=== PATIENT | female | born 1935 | race Caucasian/White ===

== ENCOUNTER 2017-05-28 10:30 | Outpatient (RCR) | payer MEDICARE ==
[2017-02-24 17:11] VITALS: BMI 28.2
--- NOTE | 2017-03-04 11:14 | PT INITIAL EVALUATION ---
MEDICAL DIAGNOSIS: Left total knee arthroplasty, CVA TREATMENT DIAGNOSIS: same DATE OF ONSET: 01/07/17 SUBJECTIVE: Libia Tam presents to physical therapy s/p L TKA on January 07, 2017. Furthermore, she reports that she fell twice on February 23, 2017. She was taken to the ER by her and stayed in the hospital from Thursday to due to mild CVA affecting her L side UE and LE. From the fall and the hospital visit, she reports that she has increased ischial tuberosity pain (and rates it to be 6/10 if sitting on it incorrectly) along with R neck stiffness ( and rates it to be 4-5/10 and feels like it is getting better). Pt reports that her pain is only occasional, but when it does come it is typically in the posterior knee, medial aspect, or around the patella. Pt currently reports no pain. Pt lives with her in a multi-level home, but has been keeping to only one level. Pt has 2 stairs to enter her household and uses a walking stick with the railing for support. Pt has 5 children which frequently come check on her. 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 She has scap over the inferior portion of the incision where she reports a stitch was removed 1.5 weeks ago. No signs or symptoms of infection in her knee. Posture: Pt sits with knee L kicked out slightly without any WB through the L foot ROM: Knee AROM (ext-flexion): R 0-120, L 5-110, AAROM L 3-112 Strength: MMT B LE: hip: flexion: L 2/5, R 4+/5, ext: L 3/5, R 4+/5, abd: L 3/5 , R 4+/5, add: L 3/5, R 4/5, knee: flexion: L 3/5, R 4/5, ext: L 3/5, R 4/5, ankle: PF: L 3/5, R 4/5, DF: L 3/5, R 5/5 Special Tests: Knee lag with SLR: 15 degrees L Gait: She demonstrated the following gait mechanics or deviations with FWW: decreased velocity, increased base of support, increased R stance phase, decreased L stance phase, increased deviations from R to L, decreased pelvic rotation, increased double limb support, decreased swing phases of gait, and LOB demonstrated X 3 during gait tests. Balance: Unable to perform standing balance with decreased base of support on compliant surface and eyes closed. Only able to perform, increased base of support, firm surface, and eyes opened for 30 seconds prior to reaching for support. Other Objective Findings: FOTO Knee: ASSESSMENT: Pt shows signs and symptoms consistent s/p L TKA and CVA with decreased strength, ROM, gait mechanics, and balance as listed above. Physical therapy is indicated to return pt to prior level of function as well as correct the above listed deficits in status. Short Term Goals In 3 weeks pt will increase L Knee ROM to 0-120 for increased functional ability to perform ADL's. In 3 weeks pt will be able to ambulate up<>down one flight of stairs for ambulation between floors in household. In 3 weeks pt will be able to perform sit to/from standing transfers with no UE support to improve function and QOL. In 6 weeks pt will increase L LE strength to 4/5 or greater in all major muscle groups for improved functional ability to perform ADL's. In 6 weeks pt will increase FOTO Knee Score to >40/50 indicating improved function. In 6 weeks pt will be able to demonstrate good fall recovery techniques and be able to get on an off of the ground for ability to garden as well improve functional recovery from falls. In 8 weeks pt will be able to ambulate with walking stick and demonstrate normal gait mechanics to decreased fall risk and return to prior level of function. Patient's Goals Be able to get around independently, be able to on and off the ground for fall recovery and gardening. PLAN: Patient to be seen for Manual Therapy/STM/MET Strengthening/condition Ice/Heat Range of Motion Spinal Stabilization Ultrasound Work Hardening/Cond Stretching Iontophoresis Neuromuscular Re-ed Closed Chain Program Electrical Stim Posture/Body mechanics Gait Trg/Balance Trg Home Exercise Program Therapeutic Activities 2x/Week for 8 Weeks If you have any questions, comments, or concerns about this report or plan, please contact me at . Thank you, Bhaskar Roca, PT, DPT MTDD
--- NOTE | 2017-03-20 14:14 | PT PLAN OF CARE ---
Physician: Aquilino Dash MD Patient is being seen: 2x/week Therapist: Haley Machuca, PT Medical Diagnosis: Left total knee arthroplasty, CVA Treatment Diagnosis: same Date of Onset: 01/07/17 Date of Initial Evaluation: 03/03/17 Date patient was last seen: 03/20/17 Number of treatments: 6 Number of cancellations/No shows: 0 INTERVENTIONS: L TKA therapeutic exercise, HEP, Manual Therapy GOALS: In 3 weeks pt will increase L Knee ROM to 0-120 for increased functional ability to perform ADL's. In 3 weeks pt will be able to ambulate up<>down one flight of stairs for ambulation between floors in household. In 3 weeks pt will be able to perform sit to/from standing transfers with no UE support to improve function and QOL. In 6 weeks pt will increase L LE strength to 4/5 or greater in all major muscle groups for improved functional ability to perform ADL's. In 6 weeks pt will increase FOTO Knee Score to >40/50 indicating improved function. In 6 weeks pt will be able to demonstrate good fall recovery techniques and be able to get on an off of the ground for ability to garden as well improve functional recovery from falls. In 8 weeks pt will be able to ambulate with walking stick and demonstrate normal gait mechanics to decreased fall risk and return to prior level of function. PATIENT'S GOAL: Be able to get around independently, be able to on and off the ground for fall recovery and gardening. Patient Compliance: Good Prognosis: Good Reasons for discontinuing therapy: S: Libia requests DC from TKA PT as she has some women's health issues that she' d like to address with PT. Knee FOTO 52%. O: ROM: L knee A/PROM 5/3 - 115/120 degrees. Strength: hip flexors R 4+/5, L 4-/5, quads L 3+/5, R 4+/5, DF L 3+/5, R 5/5, PF L 3+/5, R 4/5. L SLR with 15 deg. lag. Gait: Walking stick, at slow cadance mild prolonged L stance, steady, normal line of progression, L midfoot strike, if focused heel strike. Palpation: Painful about the patella and incision. A/P: Libia Tam has improved ROM, gait and strength but could benefit from continued PT for her L knee. I'll DC PT for now, so she can work on women's health. After that PT, if she needs further knee PT, I'll call your office. Thank you. MISTY
--- NOTE | 2017-03-24 14:34 | PT INITIAL EVALUATION ---
MEDICAL DIAGNOSIS: R32 urinary incontinence TREATMENT DIAGNOSIS: Same, R15 fecal incontinence DATE OF ONSET: 03/19/17 SUBJECTIVE: iLbia Tam presents to women's health PT for a sudden onset of fecal incontinence on 03/19/17 and again the next day. She's had urinary stress incontinence for years after having a vaginal of her fourth child , 9 lb. 2 oz., then one more child. She stopped her L TKA PT here so she could do women's health. She relates stress incontinence is minimal, but she wears a heavy pad with minimal soling, changing it twice in 24 hours. She denies intestinal illness last week. Urinary incontinence Distress questionnaire 0% impairment, fecal incontinence Quality of Life Instrument 25% impairment. Libia denies urine and fecal leakage with Valsalva, denies urge incontinence. Pain location is L knee and described as stiff and ache. Pain scale is 5 on a ten point pain scale. Pain is worse with car transfers, sit<>stand transfers, first thing in the morning and better with rest. 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 OBJECTIVE: Posture: Flattened lumbar curve, retracted pelvis. ROM: L knee AROM 10-107 degrees. Strength: Levator Ani R 1+/5, L 1/5, 7 seconds endurance. 10 seconds quick contractions = 3 reps. L hip flexor 4-/5. Core strength 2/5. Palpation: External genitalia without scarring. Sensation: S2-4 light touch intact. Special Tests: Grade II POP, minimal pelvic floor descent with Valsalva. Rectum doesn't descent with Valsalva. Mobility: Difficulty with bed mobility, sidelie to sit due to LE's/trunk weakness. Gait: Walking stick, knee flexed 25 degrees, prolonged R LE. Other Objective Findings: Libia had difficulty with lumbar and pelvic region movement in a supine supported position. ASSESSMENT: Libia Tam presents with weak pelvic floor and core affecting fecal incontinence and distress. She is started on simple lumbar ROM exercise to facilitate pelvic floor muscle activation. Short Term Goals 4 weeks: Libia reports no fecal incontinence for 3-4 weeks, pelvic floor strength 4-/5, Fecal Incontinence QOL Instrument 19% or less. Patient's Goals No fecal incontinence. PLAN: Patient to be seen for Manual Therapy Strengthening/condition Range of Motion Spinal Stabilization Electrical Stim Home Exercise Program Pelvic Floor 2x/Week for 4 Weeks Thank you for this referral. If you have any questions, comments, or concerns about this report or plan, please contact me at . [facility]
--- NOTE | 2017-04-03 12:59 | PT PLAN OF CARE ---
Physician: Aarti Squires, STEPHANIE, FRONT OFFICE DIRECTOR- Patient is being seen: 2-3x/Week Therapist: Lucía Carter, PT, DPT, CLT Medical Diagnosis: R32 urinary incontinence Treatment Diagnosis: Same, R15 fecal incontinence Date of Onset: 03/19/17 Date of Initial Evaluation: 03/24/17 Date patient was last seen: 04/03/17 Number of treatments: 3 Number of cancellations/No shows: 0 INTERVENTIONS: Manual Therapy/STM/MET Strengthening/condition Range of Motion Spinal Stabilization Electrical Stim Home Exercise Program Pelvic Floor GOALS: 4 weeks: Libia reports no fecal incontinence for 3-4 weeks, pelvic floor strength 4-/5, Fecal Incontinence QOL Instrument 19% or less. MET for 2 weeks. PATIENT'S GOAL: No fecal incontinence. Status of Patient's Goals: MET Patient Compliance: Good Prognosis: Excellent Reasons for continuing therapy: Libia is to discharge from physical therapy treatment of incontinence at this time having completed all short term physical therapy goals. Pt is to continue to progress with pelvic floor strengthening HEP independently while initiating further PT for her L Knee s/p TKA which she reports is her greatest impairment at this time. In addition it is recommended that patient pursue treatment by RESIDENCE LEASING AGENT for reported continual deficits in cognition and voice level following TIA and has been referred to do so. Posture: Flattened lumbar curve, retracted pelvis. ROM: L knee AROM 5-107 degrees. Strength: Pelvic floor strength as tested with activation of internal core girdle 4-/5 Palpation: External genitalia without scarring. Special Tests: Fecal Incontinence Quality of Life Questionnaire Score: 98/108= 9 % impairment Mobility: Difficulty with bed mobility, sideline to sit due to LE's/trunk weakness. If you have any questions or concerns, please feel free to contact me at [phone]. Thank you, Lucía Carter, PT, DPT, CLT [facility]
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
--- NOTE | 2017-05-05 16:20 | PT PLAN OF CARE ---
Physician: Lay Horner MD Patient is being seen: 2x/Week Therapist: Lucía Carter, PT, DPT, CLT Medical Diagnosis: Ischemic Stroke Treatment Diagnosis: Generalized weakness, Ischemic Stroke, L TKA, Urinary Incontinence Date of Onset: 03/19/17 Date of Initial Evaluation: 03/24/17 Date patient was last seen: 05/05/17 Number of treatments: 10 Number of cancellations/No shows: 0 INTERVENTIONS: Manual Therapy/STM/MET Strengthening/condition Range of Motion Spinal Stabilization Electrical Stim Home Exercise Program Pelvic Floor GOALS: In 3 weeks pt will improve ROM of the L knee to equal to that of the R knee for improved functional mobility and performance of ADL's. MET In 6 weeks pt will improve LE strength B to > 4/5 in all major muscle groups for improved functional mobility and performance of ADL's. In 6 weeks pt will be able to ambulate 3 laps around the track without use of AD for improved functional ambulation. In 6 weeks pt will have no episodes of urinary incontinence with ADL's for increased function. PATIENT'S GOAL: No fecal incontinence. Status of Patient's Goals: 05/28 Goals MET Patient Compliance: Good Prognosis: Excellent Reasons for continuing therapy: Pt shows maintenance in surgical knee ROM with equal ROM between LE. Pt to progress further in PT with strengthening focusing on LE strength loss secondary from prolonged hospitalization and weakness secondary to multiple CVA's. Gait remains unstable with pt use of SPC for stability, though progress is to be made. Pt shows occasional bouts of urinary incontinence following CVA's which are being treated with pelvic floor and deep core activation and neuromuscular reeducation with relative success. Bouts of fecal incontinence are no longer present. Posture: Forward trunk lean, flattened lumbar curvature ROM: Knee AROM: L 4-120 degrees, R 3-120 degrees Strength: Lower Abdominal and pelvic floor strength: 1/5 LE MMT: Hip: flexion: L 3+/5, R 4/5, ext: L 3+/5, R 4/5. Knee: flexion: B 4/5 , ext: L 3+/5, R 4/5. Ankle: PF: B 3+/5, DF B 5/5 Mobility: Pt able to perform SLR on L side with 2-3 degree lag. Gait: Unsteady gait with wide WILLIE and use of walking stick for stability, decreased foot clearance B with decreased stride length. If you have any questions or concerns, please feel free to contact me at . Thanks, Lucía Carter, PT, DPT, CLT MTDD
[~2017-05-28 10:30] MED LIST: ACET500T68 PO; ASPI-1471 PO; ASPI-757 PO; ASPI-764 PO; ATOR20TA65 PO; ATR80PT PO; CALC-545 PO; CALC-852 PO; CLOB15GE7 TP; CLOP75TA PO; CYCL10TA29 PO; DOCU-202 PO; EST625 PO; ESTR-33 PO; FERR27TA3 PO; HYDR-2966 PO; LEVO-85 PO; LEVO50TA80 PO; LEVO50TA86 PO; LEVO75TA73 PO; LOPE1LIQ49 PO; LOSA100T67 PO; MECL25TA9 PO; OCCUVITE PO; OLME40TA17 PO; OMEP-125 PO; OMEP-218 PO; PANT20TA27 PO; PANT40TA65 PO; PIRO-1 PO; RANI-324 PO; ROS10 PO; SIMV-49 PO; SULF-198 PO; VIT1CAPS4 PO; VITA-175 PO
[2017-06-03] MEDS ORDERED: DICL100G39 TOP (13:42)
[2017-06-03] MEDS ORDERED: RANI-324 PO (13:49)
[2017-06-03] MEDS ORDERED: ATOR20TA65 PO (13:49)
[2017-06-03] MEDS ORDERED: CLOP75TA PO (13:50)
== END 2017-06-01 ==
LOC: PT 10:30
PROVIDERS: ATTEND Orthopaedic Surgery Hand Surgery
DX: Z47.1 Aftercare following joint replacement surgery (principal); R29.6 Repeated falls; I63.9 Cerebral infarction, unspecified; R26.89 Other abnormalities of gait and mobility; R32 Unspecified urinary incontinence; R15.9 Full incontinence of feces; M25.562 Pain in left knee; Z86.73 Personal history of transient ischemic attack (TIA), and cerebral infarction without residual deficits; Z96.653 Presence of artificial knee joint, bilateral
CPT/HCPCS: 97162

== ENCOUNTER 2017-08-07 15:19 | Outpatient (RCR) | payer MEDICARE ==
[2017-02-24 17:11] VITALS: BMI 28.2
--- NOTE | 2017-06-05 10:20 | SLP Assessment ---
INITIAL SPEECH PATHOLOGY EVALUATION REPOR Patient Name: Libia Tam Date of Evaluation: 06-03-17 Patient : 33 Age:81 , Female Physician: Lay Horner MD Clinician: Erna Biggs M.S., CCC-SEWING MACHINE OPERATOR FLOORPERSON BACKGROUND The patient is a 81 year old R-hand female. She was referred to speech therapy services d/t cognitive-communications deficits following a CVA. This was her 2nd recent CVA with first occurring in February of 2017. Functional Communication The patient has demonstrated improvement with returning to prior IADLs she is managing finances together with her . In tx she has demonstrated success with simulated student financial services counselor when provided with min assist to identify simple math errors using a calculator. She is now managing medications independently . She reports her occasionally double checks her medications for her but that he has found no errors. She would like to return to driving but reports he is not comfortable with this. She recently drove her car to the repair shop with her following behind in another car and reports she encountered no problems driving. ST will administer the VARGAS Fusion Juncture Grinder OFF-ROAD Assessment Battery. The results of this assessment do not clear the patient to drive. The results of this assessment provide additional information regarding whether or not the patient may be ready to take an on-road driving assessment if her physician feels this is appropriate. Articulation and Voice Vocal quality has improved with reduced breathiness and hoarseness of voice. Pitch variaibility and timber during conversation are improved with overall improved emotive quality of voice. Volume continues to be reduced however pt can increase volume with cueing and she feels she has returned to PLOF with speech volume. RECOMMENDATIONS 1 .Speech therapy 2x/wk for 10 weeks to address updated POC PROGNOSIS: Very Good. Patient is motivated and responds well to therapy UPDATED POC SHORT-TERM GOALS 1. Pt return to managing 2 IADLs of her choice independently 2. The patient will perform executive function tasks (ie. error identification and strategy use) for successful completion of daily tasks related to personal goals for return to IADLs LONG-TERM GOALS Increase functional cognitive- communication for independence in the community and at home. Thank you for this referral. Please call [phone] Erna Biggs M.S., CCC-SEWING MACHINE OPERATOR FLOORPERSON LSVT [facility] Certified [facility] Dysphagia Therapy Care Certified Physician Signature Date MTDD
--- NOTE | 2017-06-16 13:46 | PT PLAN OF CARE ---
Physician: Aarti Squires, DNP, EXPENSE ANALYST- Patient is being seen: 2-3x/Week Therapist: Lucía Carter, PT, DPT, CLT Medical Diagnosis: R32 urinary incontinence Treatment Diagnosis: Same, R15 fecal incontinence, Generalized Weakness, Abnormality of Gait Date of Onset: 03/19/17 Date of Initial Evaluation: 03/24/17 Date patient was last seen: 06/16/17 Number of treatments: 22 Number of cancellations/No shows: 0 INTERVENTIONS: Manual Therapy/STM/MET Strengthening/condition Range of Motion Spinal Stabilization Electrical Stim Home Exercise Program Pelvic Floor GOALS: In 3 weeks pt will improve ROM of the L knee to equal to that of the R knee for improved functional mobility and performance of ADL's. MET In 6 weeks pt will improve LE strength B to > 4/5 in all major muscle groups for improved functional mobility and performance of ADL's. In 6 weeks pt will be able to ambulate 3 laps around the track without use of AD for improved functional ambulation. In 6 weeks pt will have no episodes of urinary incontinence with ADL's for increased function. PATIENT'S GOAL: No fecal incontinence improve Status of Patient's Goals: 1/4 Goals MET Patient Compliance: Good Prognosis: Excellent Reasons for continuing therapy: Libia shows progress in strength and stability with gait and functional movement. Lingering deficits remain in gluteus medius weakness associated with L knee valgus and L Trendelenburg gait pattern, as well as general quad weakness L>R. Libia shows improved gait mechanics with equal step length and decreased pelvic drop, and is also now able to ambulate up stairs with a reciprocal gait pattern. Further PT is indicated to continue progress with strength gains as well as improve functional mobility. ROM: Knee AROM: L 4-120 degrees, R 3-120 degrees Strength: Lower Abdominal and pelvic floor strength: 3/5 LE MMT: Hip: flexion: L 3+/5, R 4/5, ext: L 3+/5, R 4/5. Knee: flexion: B 4/5 , ext: L 3+/5, R 4/5. Ankle: PF: B 3+/5, DF B 5/5 Mobility: Pt able to perform SLR on L side with 2-3 degree lag. Gait: Small step length but equal bilaterally, L Trendelenburg gait pattern, occasional gait deviation laterally for balance, no use of AD If you have any questions or concerns, please feel free to contact me at . Thanks, Lucía Carter, PT, DPT, CLT MTDD
--- NOTE | 2017-07-08 14:41 | SLP DISCHARGE NOTE ---
SPEECH THERAPY DISCHARGE SUMMARY Discharge from : 07-07-17 Patient Name: Libia Tam Patient : 33 Age:81 , Female Physician: Lay Horner MD Clinician: Erna Biggs M.S., [facility]-GROUP EXERCISE INSTRUCTOR, BINH Preston The pt has been attending ST at [facility] 2/wk since 04/23/2017. She attended scheduled visits regularly and continues to see PT 2/wk. She reported success outside of the treatment room with returning to IADLs, including managing finances. She also reported success with her expressive language and saying that she rarely experiences word finding difficulty outside of treatment. POC The patient has met the following ST goals: Short Term 1. Pt return to managing 2 IADLs of her choice with min assist. 2. Pt will perform attention tasks to 90-95% independently 3. Pt will perform expressive language tasks for functional communication with 90-95% accuracy and increased overall rate independently. Usp 1. Increase functional cognitive communication for independence in the community and at home. 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 She has returned to managing her finances, reading and sewing. Driving was addressed during treatment. The VARGAS-OT, Off- Road Driving Assessment was completed on 06-11-17 with the following results:. Visual acuity meets the standards for non-commercial drivers (R:20/50, L:20/100 ) and visual huynh were WNL. Pt has since had an eye exam at [facility] and reports that the results are unchanged when compared to pre-CVA vision testing. The Mejia Balance Scale indicated that the pt was a low fall risk (44/56). Right- heel pivot test was completed in 9 seconds and indicated reduced heal pivot skill that could affect driving. No risk indicated for the simulated accelerator-brake test. Cognitive assessment OT Drive Home Maze Test: 33 seconds- WNL Road Law/Road Craft Test: 28/37 WNL Mini-Mental Status Exam: 30/30 No cognitive deficit indicated [employer] test: 25/35 Indicated possible attentional deficit. At this time, the patients is not comfortable with her returning to driving and the patient agrees to comply with his wishes regarding her abstaining from driving. The patient was retested with the [place] Naming Test (BNT) and yielded a raw score of 53/60 88%. Given approximately a 5 minute delay, the patient was able to recall additional object names, yielding a score of 56/60 93%. The patients score from her initial evaluation was 51/60 85%. The patient also completed subtests from the Cognitive Linguistic Quick Test ( CLQT) assessing attention, executive function, and visuospatial skills. Scores on these were WNL. Previous testing indicated mild deficits in these areas. The patient was educated on stroke signs and cognitive health prior to d/c and was advised to inform her physician if she notices any changes in her cognitive and communicative abilities. RECOMMENDATION DC from at this time. Thank you for referring this patient to [facility], Speech- Language Pathology. Please call [phone] to contact the GROUP EXERCISE INSTRUCTOR. Respectfully, Erna Biggs M.S., [facility]-GROUP EXERCISE INSTRUCTOR, Gely Lawrence, [facility] SYSTEMAlexis
--- NOTE | 2017-07-24 09:36 | PT PLAN OF CARE ---
Physician: Lay Horner MD Patient is being seen: 2-3x/Week Therapist: Lucía Carter, PT, DPT, CLT Medical Diagnosis: R32 urinary incontinence Treatment Diagnosis: Same, R15 fecal incontinence Date of Onset: 03/19/17 Date of Initial Evaluation: 03/24/17 Date patient was last seen: 07/23/17 Number of treatments: 33 Number of cancellations/No shows: 0 INTERVENTIONS: Manual Therapy/STM/MET Strengthening/condition Range of Motion Spinal Stabilization Electrical Stim Home Exercise Program Pelvic Floor GOALS: In 3 weeks pt will improve ROM of the L knee to equal to that of the R knee for improved functional mobility and performance of ADL's. MET In 6 weeks pt will improve LE strength B to > 4/5 in all major muscle groups for improved functional mobility and performance of ADL's. In 6 weeks pt will be able to ambulate 3 laps around the track without use of AD for improved functional ambulation. MET In 6 weeks pt will have no episodes of urinary incontinence with ADL's for increased function. MET PATIENT'S GOAL: No fecal incontinence improve Status of Patient's Goals: 3/4 Goals MET Patient Compliance: Good Prognosis: Excellent Reasons for continuing therapy: Jenn shows good maintenance of no episodes of incontinence with improved pelvic floor strength. She also shows good improvements in knee strength. Lingering deficits remain in hip functional strength with gait with Trendelenburg pattern persisting though reduced. ROM: Knee AROM: L 4-120 degrees, R 3-120 degrees Strength: Lower Abdominal and pelvic floor strength: 3/5 LE MMT: Hip: flexion: L 4/5, R 5/5, ext: L 4/5, R 4+/5, abd: L 4/5, R 4+/5. Knee: flexion: B 5/5, ext: L 4+/5, R 5/5. Ankle: PF: B 3+/5, DF B 5/5 Mobility: Pt able to perform SLR on L side with 2-3 degree lag. Gait: Small step length but equal bilaterally, L Trendelenburg gait pattern, occasional gait deviation laterally for balance, no use of AD If you have any questions or concerns, please feel free to contact me at . Thanks, Lucía Carter PT, DPT, CLT MTDD
[~2017-08-07 15:19] MED LIST changes: +DICL100G39 TOP
--- NOTE | 2017-08-07 17:36 | PT PLAN OF CARE ---
Physician: Aarti Squires, DNP, [employer]- Patient is being seen: 2-3x/week Therapist: Lucía Carter, PT, DPT, CLT Medical Diagnosis: R32 urinary incontinence Treatment Diagnosis: Same, R15 fecal incontinence Date of Onset: 03/19/17 Date of Initial Evaluation: 03/24/17 Date patient was last seen: 08/07/17 Number of treatments: 37 Number of cancellations/No shows: 1 IGOALS: In 3 weeks pt will improve ROM of the L knee to equal to that of the R knee for improved functional mobility and performance of ADL's. MET In 6 weeks pt will improve LE strength B to > 4/5 in all major muscle groups for improved functional mobility and performance of ADL's. MET In 6 weeks pt will be able to ambulate 3 laps around the track without use of AD for improved functional ambulation. MET In 6 weeks pt will have no episodes of urinary incontinence with ADL's for increased function. MET PATIENT'S GOAL: No fecal incontinence improve Status of Patient's Goals: 4/4 Goals MET Patient Compliance: Good Prognosis: Excellent Reasons for discharge from therapy: Libia is to discharge from physical therapy at this time secondary to completion of 4/4 functional goals and per pt preference. 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 Pt is to progress independently with strength gains at this time and seek further pt if deficits remain or if pt experiences any decrease in function. ROM: Knee AROM: L 4-120 degrees, R 3-120 degrees Strength: Lower Abdominal and pelvic floor strength: 4/5 LE MMT: Hip: flexion: L 4+/5, R 5/5, ext: L 4+/5, R 4+/5, abd: L 4+/5, R 4+/ 5. add: B 5/5 Knee: flexion: B 4+/5, ext: L 4+/5, R 5/5. Ankle: PF: B 4/5, DF B 5/5 Gait: Slight L Trendelenburg gait pattern remaining with occasional gait deviation laterally for balance, no use of AD If you have any questions or concerns, please feel free to contact me at [phone]. Thanks, Lucía Carter, PT, DPT, CLT MTDD
== END 2017-08-07 18:00 | disposition home or self-care (01) ==
LOC: PT 15:19
PROVIDERS: ATTEND Family Medicine
DX: Z47.1 Aftercare following joint replacement surgery (principal); R29.6 Repeated falls; I63.9 Cerebral infarction, unspecified; R26.89 Other abnormalities of gait and mobility; R32 Unspecified urinary incontinence; R15.9 Full incontinence of feces; M25.562 Pain in left knee; Z86.73 Personal history of transient ischemic attack (TIA), and cerebral infarction without residual deficits; Z96.653 Presence of artificial knee joint, bilateral

== ENCOUNTER 2017-10-21 16:57 | Emergency (ER) | payer MEDICARE ==
[2017-02-24 17:11] VITALS: Wt 72.6 kg
[~2017-10-21 16:57] MED LIST changes: -RANI-324 PO; +RANI-366 PO
--- NOTE | 2017-10-21 17:00 | ER Report ---
History and Physical Time Seen By MD: 16:58 (RIYA ACOSTA DO) HPI/ROS CHIEF COMPLAINT: Chest pain with inspiration, shortness of breath for 2 days, general malaise, headache for the past 1-2 hours HISTORY OF PRESENT ILLNESS: Patient is an 82-year-old female here with complaints of pleuritic mid sternal chest pain worse with inspiration for the past 2 days, frontal headache (no history of headaches) for the past 1-2 hours in the setting of prior history of strokes currently on Plavix and aspirin. Patient was also noted to be short of breath, with oxygen saturations of 89% and tachycardic. She denies prior history of smoking, home oxygen use, COPD, heart failure. She was placed on supplement oxygen upon arrival. Patient denies fevers, chills, blurred vision, dysphagia, odynophagia, nausea, vomiting, dysuria, hematuria, melena, hematochezia or recent falls. REVIEW OF SYSTEMS: Constitutional: No fever, no chills. Eyes: No discharge. ENT: No sore throat. Cardiovascular: + chest pain, no palpitations. Respiratory: No cough, + shortness of breath, + pleuritic CP worse on inspiration Gastrointestinal: No abdominal pain, no vomiting. Genitourinary: No hematuria. Musculoskeletal: No back pain. Skin: No rashes. Neurological: + headache. (RIYA ACOSTA DO) Allergies: Coded Allergies: NSAIDS (Non-Steroidal Anti-Inflamma (Verified Allergy, Unknown, 10/21/17) Penicillins (Verified Allergy, Unknown, 10/21/17) amoxicillin (Verified Allergy, Unknown, 10/21/17) clavulanic acid (Verified Allergy, Unknown, 10/21/17) Home Meds Active Scripts Methylprednisolone (METHYLPREDNISOLONE) 4 Mg Tab.ds.pk, 4 MG PO DIRECTED for 6 Days, #1 PACK 0 Refills Prov:DAFNE MITCHELL MD 10/21/17 Levothyroxine Sodium (LEVOTHYROXINE SODIUM) 50 Mcg Tablet, 1 TAB PO QDAY for 90 Days, #90 TAB 4 Refills Prov:KALEY GARCIA MD 10/12/17 Clopidogrel Bisulfate (CLOPIDOGREL) 75 Mg Tablet, 1 TAB PO QDAY for 90 Days, # 90 TAB 4 Refills Prov:KALEY GARCIA MD 06/03/17 Atorvastatin Calcium (ATORVASTATIN CALCIUM) 20 Mg Tablet, 1 TAB PO QDAY for 90 Days, #90 TAB 4 Refills Prov:KALEY GARCIA MD 06/03/17 Ranitidine Hcl (ZANTAC) 150 Mg Tablet, 1 TAB PO BID Y for HEARTBURN for 90 Days , #180 TAB 4 Refills Take 1 tab po daily for heartburn, may take twice daily if needed. Prov:KALEY GARCIA MD 06/03/17 Diclofenac Sodium 1% Gel (VOLTAREN 1% GEL) 100 Gm Gel..gram., 2 GM TOP QID for 30 Days, #1 TUBE 3 Refills Prov:KALEY GARCIA MD 06/03/17 Reported Medications Aspirin (ASPIR 81) 81 Mg Tablet.dr, 1 TAB PO QDAY, TAB 04/13/17 Acetaminophen (TYLENOL EXTRA STRENGTH) 500 Mg Tablet, 2 TAB PO Q8H Y for pain, TAB 11/03/16 Meclizine Hcl (MECLIZINE HCL) 25 Mg Tablet, 12.5 MG PO BID Y for DIZZINESS 11/03/16 Vit A/Vit C/Vit E/Zinc/Copper (ICAPS AREDS SOFTGEL) Unknown Strength Capsule, PO , CAPSULE 11/03/16 Hx Smoking: No Smoking Status: Never Smoker Exposure to Second Hand Smoke?: Yes (FATHER WAS A SMOKER- NONE FOR 50+ YEARS) Hx Substance Use Disorder: No Hx Alcohol Use: No (RIYA ACOSTA DO) Constitutional Vital Sign - Last 24 Hours 10/21/17 10/21/17 10/21/17 10/21/17 17:01 17:03 17:17 17:30 Temp 97.9 Pulse 116 97 97 Resp 18 22 B/P (MAP) 179/97 179/97 (124) 171/90 (117) Pulse Ox 93 97 O2 Delivery Room Air O2 Flow Rate 2.0 10/21/17 10/21/17 10/21/17 10/21/17 17:32 17:32 17:37 18:30 Pulse 93 95 97 Resp 16 13 B/P (MAP) 179/93 (121) Pulse Ox 96 O2 Delivery Nasal Cannula O2 Flow Rate 2.0 10/21/17 10/21/17 10/21/17 10/21/17 18:35 18:50 19:00 19:05 Pulse 109 110 109 Resp 21 23 10 B/P (MAP) 174/93 (120) Pulse Ox 95 ([facility]) Physical Exam General Appearance: The patient is alert, has no immediate need for airway protection and no signs of toxicity. + anxious, moderate distress due to discomfort/SOB Eyes: Pupils equal and round no pallor or injection. ENT, Mouth: Mucous membranes are moist. Respiratory: There are no retractions, lungs are clear to auscultation. Cardiovascular: + Tachycardia, Sinus Gastrointestinal: Abdomen is soft and non tender, no masses, bowel sounds normal. Neurological: No focal deficits Skin: Warm and dry, no rashes. Musculoskeletal: Neck is supple non tender. Extremities are nontender, nonswollen and have full range of motion. DIFFERENTIAL DIAGNOSIS: After history and physical exam differential diagnosis was considered for shortness of breath including but not limited to pulmonary infectious process, COPD, asthma, pulmonary embolus and congestive heart failure. (RIYA ACOSTA DO) Medical Decision Making Data Points Result Diagram: 10/21/17 1708 10/21/17 1708 Laboratory Hematology Test 10/21/17 17:08 Red Blood Count 4.74 M/uL (4.17-5.56) Mean Corpuscular Volume 90.8 fL (80.0-96.0) Mean Corpuscular Hemoglobin 31.4 pg (26.0-33.0) Mean Corpuscular Hemoglobin Concent 34.6 g/dL (32.0-36.0) Red Cell Distribution Width 13.1 % (11.5-14.5) Mean Platelet Volume 8.3 fL (7.2-11.1) Neutrophils (%) (Auto) 71.0 % (39.4-72.5) Lymphocytes (%) (Auto) 17.1 % (17.6-49.6) Monocytes (%) (Auto) 9.3 % (4.1-12.4) Eosinophils (%) (Auto) 2.1 % (0.4-6.7) Basophils (%) (Auto) 0.5 % (0.3-1.4) Nucleated RBC Relative Count (auto) 0.0 /100WBC Neutrophils # (Auto) 10.1 K/uL (2.0-7.4) Lymphocytes # (Auto) 2.4 K/uL (1.3-3.6) Monocytes # (Auto) 1.3 K/uL (0.3-1.0) Eosinophils # (Auto) 0.3 K/uL (0.0-0.5) Basophils # (Auto) 0.1 K/uL (0.0-0.1) Nucleated RBC Absolute Count (auto) 0.01 K/uL Prothrombin Time 14.9 seconds (12.0-14.4) Prothromb Time International Ratio 1.16 Activated Partial Thromboplast Time 33 seconds (23-35) D-Dimer Quantitative (PE/DVT) 0.67 ug/ml (0-0.50) Sodium Level 142 mmol/L (137-145) Potassium Level 3.5 mmol/L (3.5-5.0) Chloride Level 100 mmol/L (98-107) Carbon Dioxide Level 27 mmol/L (22-31) Blood Urea Nitrogen 17 mg/dl (7-18) Creatinine 0.80 mg/dl (0.52-1.04) Glomerular Filtration Rate Calc > 60.0 Random Glucose 104 mg/dl (75-110) Calcium Level 9.9 mg/dl (8.4-10.2) Total Bilirubin 0.7 mg/dl (0.2-1.3) Aspartate Amino Transf (AST/SGOT) 27 U/L (0-35) Alanine Aminotransferase (ALT/SGPT) 26 U/L (0-56) Alkaline Phosphatase 83 U/L (0-126) Troponin I < 0.012 ng/ml B-Type Natriuretic Peptide 51 pg/ml (0-100) Total Protein 8.5 gm/dl (6.3-8.2) Albumin 4.8 g/dl (3.5-5.0) Chemistry Test 10/21/17 17:08 White Blood Count 14.2 k/uL (4.5-11.0) Red Blood Count 4.74 M/uL (4.17-5.56) Hemoglobin 14.9 g/dL (12.0-16.0) Hematocrit 43.0 % (34.0-47.0) Mean Corpuscular Volume 90.8 fL (80.0-96.0) Mean Corpuscular Hemoglobin 31.4 pg (26.0-33.0) Mean Corpuscular Hemoglobin Concent 34.6 g/dL (32.0-36.0) Red Cell Distribution Width 13.1 % (11.5-14.5) Platelet Count 271 K/uL (150-450) Mean Platelet Volume 8.3 fL (7.2-11.1) Neutrophils (%) (Auto) 71.0 % (39.4-72.5) Lymphocytes (%) (Auto) 17.1 % (17.6-49.6) Monocytes (%) (Auto) 9.3 % (4.1-12.4) Eosinophils (%) (Auto) 2.1 % (0.4-6.7) Basophils (%) (Auto) 0.5 % (0.3-1.4) Nucleated RBC Relative Count (auto) 0.0 /100WBC Neutrophils # (Auto) 10.1 K/uL (2.0-7.4) Lymphocytes # (Auto) 2.4 K/uL (1.3-3.6) Monocytes # (Auto) 1.3 K/uL (0.3-1.0) Eosinophils # (Auto) 0.3 K/uL (0.0-0.5) Basophils # (Auto) 0.1 K/uL (0.0-0.1) Nucleated RBC Absolute Count (auto) 0.01 K/uL Prothrombin Time 14.9 seconds (12.0-14.4) Prothromb Time International Ratio 1.16 Activated Partial Thromboplast Time 33 seconds (23-35) D-Dimer Quantitative (PE/DVT) 0.67 ug/ml (0-0.50) Glomerular Filtration Rate Calc > 60.0 Calcium Level 9.9 mg/dl (8.4-10.2) Total Bilirubin 0.7 mg/dl (0.2-1.3) Aspartate Amino Transf (AST/SGOT) 27 U/L (0-35) Alanine Aminotransferase (ALT/SGPT) 26 U/L (0-56) Alkaline Phosphatase 83 U/L (0-126) Troponin I < 0.012 ng/ml B-Type Natriuretic Peptide 51 pg/ml (0-100) Total Protein 8.5 gm/dl (6.3-8.2) Albumin 4.8 g/dl (3.5-5.0) Coagulation Test 10/21/17 17:08 Prothrombin Time 14.9 seconds Prothromb Time International Ratio 1.16 Activated Partial Thromboplast Time 33 seconds D-Dimer Quantitative (PE/DVT) 0.67 ug/ml ([facility]) EKG/Imaging EKG Interpretation 12 lead EKG: Rate 102- Unchanged compared to Apr 08 2017 EKG Rhythm: Sinus Tachycardia Spreckels: LAD QRS: normal ST segments: normal Monitor Interpretation: Sinus Tachycardia (ACOSTA,RIYA S DO) Imaging CT angiogram chest with contrast Indication: Rule out a pulmonary embolus. Comparison: Examination chest March 2017 Technique: Axial CT images are obtained through the chest after administration of 75 mL Isovue 370 IV contrast. Reformatted coronal and sagittal images were reviewed as well as coronal MIP images. One of the following dose optimization techniques was utilized in the performance of this exam: Automated exposure control; adjustment of the mA and/or kV according to the patient's size; or use of an iterative reconstruction technique. Specific details can be referenced in the facility's radiology CT exam operational policy. FINDINGS: The heart appears mildly enlarged. No pericardial effusion. Although not optimally timed, there is no evidence of acute vascular abnormality associated with the visualized aorta or the proximal arch vessels. There is no CT angiographic evidence for a pulmonary embolus. Pulmonary parenchyma reveals minimal posterior dependent groundglass opacity with posterior bibasilar linear opacity consistent with subsegmental atelectasis and hypoventilatory change. No evidence of alveolar consolidation, effusion or pneumothorax. Small hiatal hernia. Evaluation of the soft tissues reveal symmetric appearing thyroid. Prominent nodes are noted in AP window, the largest of which measures 9 mm. Additional mildly prominent but subcentimeter nodes are noted in the superior mediastinum. IMPRESSION: 1. No evidence of pulmonary embolus. 2. Mild cardiomegaly 3. Mild posterior and bibasilar atelectasis 4. Borderline adenopathy AP window. Report Dictated By: Shane Angela MD at 10/21/2017 6:13 PM EXAMINATION: CT HEAD WITHOUT CONTRAST COMPARISON: 04/08/2017 HISTORY: headache PROCEDURE: Noncontrast CT from the vertex through the skull base. One of the following dose optimization techniques was utilized in the performance of this exam: Automated exposure control; adjustment of the mA and/or kV according to the patient's size; or use of an iterative reconstruction technique. Specific details can be referenced in the facility's radiology CT exam operational policy. FINDINGS: Brain volume: Mild global volume loss. Hemorrhage/extra-axial fluid: None. Mass effect/midline shift/edema: None. Ischemia: Moderately advanced chronic white matter change as before. No acute barrera-white differentiation loss. Ventricles and basal cisterns: Within normal limits. Posterior fossa: Negative. Vessels: Carotid atherosclerosis. Calvarium, skull base, and scalp: Negative. Visualized sinuses and orbits: Within normal limits. IMPRESSION: 1. No intracranial hemorrhage or mass effect. 2. Atrophy and chronic white matter disease. No CT findings of acute ischemia. Report Dictated By: Marco Rivas MD at 10/21/2017 6:22 PM ([facility],DAFNE Pederson MD) ED Course/Re-evaluation ED Course Patient is an 82-year-old female here with complaints of pleuritic mid sternal chest pain worse with inspiration for the past 2 days, frontal headache (no history of headaches) for the past 1-2 hours in the setting of prior history of strokes currently on Plavix and aspirin. Patient was also noted to be short of breath, with oxygen saturations of 89% and tachycardic (sinus rhythm). EKG confirmed sinus tachycardia without ischemic changes. Bedside US showed no tamponade physiology, septal bowing. Good lung sliding was noted b/l lung huynh. She denies prior history of smoking, home oxygen use, COPD, heart failure. She was placed on supplement oxygen upon arrival. Patient denies fevers , chills, blurred vision, dysphagia, odynophagia, nausea, vomiting, dysuria, hematuria, melena, hematochezia or recent falls. Due to clinical concern, CT PE was ordered and CT Head was ordered due to new onset of acute headache. Patient was also noted to be hypertensive- will continue to monitor. Duoneb was ordered to see if dyspnea will improve post neb treatment. Lungs CTA on examination, no JVD was noted or tracheal deviation. Patient was afebrile at time of initial evaluation. (RIYA ACOSTA DO) ED Course I reviewed this patient with Dr. Acosta at shift change. Her CTA of the chest is negative. Her CT of the head is negative. She is off of oxygen and saturations have remained in the mid 90s. She is mildly tachycardic. We discussed pleurisy and will start her on a Medrol Dosepak. She will continue to use Tylenol for pain. She will rest and increase her fluid intake. Decision to Disposition Date: October 21, 2017 Decision to Disposition Time: 18:53 (DAFNE MITCHELL MD) Depart Departure Latest Vital Signs Vital Signs Date Time Temp Pulse Resp B/P (MAP) Pulse Ox O2 Delivery O2 Flow Rate FiO2 10/21/17 19:05 109 10 10/21/17 19:00 174/93 (120) 10/21/17 18:50 95 10/21/17 17:32 Nasal Cannula 2.0 10/21/17 17:01 97.9 (DAFNE MITCHELL MD) Impression: Primary Impression: Pleurisy Condition: Improved Disposition: HOME OR SELF-CARE Referrals: KALEY GARCIA MD (PCP) New Scripts Methylprednisolone (METHYLPREDNISOLONE) 4 Mg Tab.ds.pk 4 MG PO DIRECTED for 6 Days, #1 PACK 0 Refills Prov: DAFNE MITCHELL MD 10/21/17 Patient Instructions: Pleurisy (ED) Additional Instructions: Start the Medrol Dosepak tomorrow. Rest and increase fluid intake over the next few days. Make a follow-up appointment with your primary care provider next week. RIYA ACOSTA DO October 21, 2017 17:00 DAFNE MITCHELL MD October 21, 2017 18:32
[2017-10-21 17:22] LABS: PLATELET COUNT, AUTOMATED 271 K/uL (150-450)
[2017-10-21] MEDS ORDERED: NS 0.9% 25 ML BAG 50 ML ONE (17:24)
[2017-10-21] MEDS ORDERED: IOPAMIDOL 76% 75 ML INFUS BTL 75 ML ONE (17:24)
--- NOTE | 2017-10-21 17:24 | EKG ---
FACILITY: [facility] PATIENT NAME: JIMBO LAWS : [id number] MR: [id number] V: [id number] EXAM DATE: ORDERING PHYSICIAN: RIYA MOE TECHNOLOGIST: LIA Cox Reason : CP Blood Pressure : / mmHG Vent. Rate : 102 BPM Atrial Rate : 102 BPM P-R Int : 188 ms QRS Dur : 084 ms QT Int : 366 ms P-R-T Axes : 050 -34 022 degrees QTc Int : 477 ms Sinus tachycardia Left axis deviation Poor r-wave progression Anterior infarct (cited on or before 21-OCT-2017) Abnormal ECG When compared with ECG of 08-APR-2017 17:00, Questionable change in initial forces of Lateral leads Non-specific change in ST segment in Lateral leads Confirmed by CLIVE BECERRA ([id number]) on 10/22/2017 6:42:39 AM Referred By: ABHI Confirmed By:CLIVE BECERRA
[2017-10-21] MEDS ORDERED: ALBUTEROL/IPRATROPIUM 3 ML NEB NEB ONE (17:30)
[2017-10-21 17:31] LABS: INR 1.16
--- NOTE | 2017-10-21 18:27 | RADIOLOGY IMAGING REPORT ---
FACILITY: [facility] PATIENT NAME: Libia Tam : 1935 MR: [id number] V: [id number] EXAM DATE: ORDERING PHYSICIAN: RIYA MOE TECHNOLOGIST: Location: [facility] [place] Patient: Libia Tam : 1935 Visit/Account:[id number] Date of Sevice: 10/21/2017 CT angiogram chest with contrast Indication: Rule out a pulmonary embolus. Comparison: Examination chest March 2017 Technique: Axial CT images are obtained through the chest after administration of 75 mL Isovue 370 IV contrast. Reformatted coronal and sagittal images were reviewed as well as coronal MIP images. One o f the following dose optimization techniques was utilized in the performance of this exam: Automated exposure control; adjustment of the mA and/or kV according to the patient's size; or use of an iterat silvano reconstruction technique. Specific details can be referenced in the facility's radiology CT exa m operational policy. FINDINGS: The heart appears mildly enlarged. No pericardial effusion. Although not optimally timed, there is no evidence of acute vascular abnormality associated with the visualized aorta or the proximal arch ves sels. There is no CT angiographic evidence for a pulmonary embolus. Pulmonary parenchyma reveals minimal posterior dependent groundglass opacity with posterior bibasilar linear opacity consistent with subsegmental atelectasis and hypoventilatory change. No evidence of a lveolar consolidation, effusion or pneumothorax. Small hiatal hernia. Evaluation of the soft tissues reveal symmetric appearing thyroid. Prominent nodes are noted in AP wi ndow, the largest of which measures 9 mm. Additional mildly prominent but subcentimeter nodes are not ed in the superior mediastinum. IMPRESSION: 1. No evidence of pulmonary embolus. 2. Mild cardiomegaly 3. Mild posterior and bibasilar atelectasis 4. Borderline adenopathy AP window. Report Dictated By: Shane Angela MD at 10/21/2017 6:13 PM Report E-Signed By: Shane Angela MD at 10/21/2017 6:22 PM WSN:[id number]
--- NOTE | 2017-10-21 18:28 | RADIOLOGY IMAGING REPORT ---
FACILITY: [facility] PATIENT NAME: Libia Tam : 1935 MR: [id number] V: [id number] EXAM DATE: ORDERING PHYSICIAN: RIYA MOE TECHNOLOGIST: Location: [facility] - [place] Patient: Libia Tam : 1935 Visit/Account:[id number] Date of Sevice: 10/21/2017 EXAMINATION: CT HEAD WITHOUT CONTRAST COMPARISON: 04/08/2017 HISTORY: headache PROCEDURE: Noncontrast CT from the vertex through the skull base. One of the following dose optimizat ion techniques was utilized in the performance of this exam: Automated exposure control; adjustment o f the mA and/or kV according to the patient's size; or use of an iterative reconstruction technique. Specific details can be referenced in the facility's radiology CT exam operational policy. FINDINGS: Brain volume: Mild global volume loss. Hemorrhage/extra-axial fluid: None. Mass effect/midline shift/edema: None. Ischemia: Moderately advanced chronic white matter change as before. No acute barrera-white differentiat ion loss. Ventricles and basal cisterns: Within normal limits. Posterior fossa: Negative. Vessels: Carotid atherosclerosis. Calvarium, skull base, and scalp: Negative. Visualized sinuses and orbits: Within normal limits. IMPRESSION: 1. No intracranial hemorrhage or mass effect. 2. Atrophy and chronic white matter disease. No CT findings of acute ischemia. Report Dictated By: Marco Rivas MD at 10/21/2017 6:22 PM Report E-Signed By: Marco Rivas MD at 10/21/2017 6:25 PM WSN:[id number]
[2017-10-21] MEDS ORDERED: METH4TAB66 PO (18:54)
[2017-10-21] MEDS ORDERED: methylPREDNIS 4 MG TAB PO ONE (18:55)
[2017-10-21 19:00] VITALS: BP 174/93
== END 2017-10-21 19:23 | disposition home or self-care (01) ==
LOC: ER 17:02
DX: R09.1 Pleurisy (principal)
CPT/HCPCS: 70450; 71275; 83880; 84484; 85025; 85379; 85610; 85730; 93005; 94640; 99284; J7509; J7620; Q9967; 82040; 82247; 82310; 82374; 82435; 82565; 82947; 84075; 84132; 84155; 84295; 84450; 84460; 84520

== ENCOUNTER → 2017-11-26 | Outpatient (CLI) | payer MEDICARE ==
[2017-02-24 17:11] VITALS: BMI 28.2
[~2017-11-26] MED LIST changes: +METH4TAB66 PO; +PNEU0.5D3 IM
--- NOTE | 2017-11-26 12:43 | RADIOLOGY IMAGING REPORT ---
[place] [facility] [place] Libia Tam : 1935 MR: [id number] V: [id number] EXAM DATE: ORDERING PHYSICIAN: KALEY GARCIA TECHNOLOGIST: Location: [facility] - [place] Patient: Libia Tam : 1935 Visit/Account:[id number] Date of Sevice: 11/26/2017 DEXA Scan HISTORY: Postmenopausal, osteoporosis screening. COMPARISON: 04/20/2012. LUMBAR SPINE: The bone mineral density (BMD) measured from L1-L4 correlates with a Z-score 7.3 and a T-score of 5. 7 which is Normal as defined by the World Health Organization. Lumbar bone mineral density has incre ased by 5.6% compared to prior, change of 5% is considered significant. HIP: Bone mineral density (BMD) measured in the left total hip region correlates with a Z-score 2.2 and a T-score of 1.1 which is Normal as defined by the World Health Organization. Hip bone mineral density has decreased by 4.6% compared to prior, change of 5% is considered significant. Bone mineral density (BMD) measured in the left femoral neck region measures 0.997 g/cm2 is within no rmal limits. IMPRESSION: 1. Lumbar spine: Normal bone mineral density.. Lumbar bone mineral density has significantly increa sed compared to prior, see comments above. 2. Left Total Hip: Normal bone mineral density. No significant change 3. Femoral Neck: Bone Mineral Density is 0.997 g/cm2 The next DEXA scan of this patient should include the following sites: L1-L4 and the left hip. FRAX? WHO Fracture Risk Assessment Tool link: <http://www.shef.ac.uk/FRAX/tool.jsp?locationValue=9> PLEASE NOTE: 1) The World Health Organization defines low BMD as follows: T-score Normal > -1 Osteopenia < -1 and > -2.5 Osteoporosis < -2.5 without fractures Established osteoporosis < -2.5 with fractures 2) In general, you may wish to consider: Diagnosis Treatment Follow-up DEXA Normal BMD Prevention 2-3 years Osteopenia Prevention/therapy 1-2 years Osteoporosis Therapy Yearly 3) Fracture risk estimated from the T-score is more accurate for vertebral fractures (often spontane ous) than for hip fractures. Report Dictated By: Hernan Whitehead MD at 11/26/2017 12:37 PM Report E-Signed By: Hernan Whitehead MD at 11/26/2017 12:40 PM WSN:[email or web address]
--- NOTE | 2017-11-26 15:21 | RADIOLOGY IMAGING REPORT ---
FACILITY: PATIENT NAME: JIMBO LAWS : [id number] MR: [id number] V: [id number] EXAM DATE: [id number] ORDERING PHYSICIAN: KALEY GARCIA TECHNOLOGIST: Sue Villalpando PROCEDURE:BILATERAL DIGITAL SCREENING MAMMOGRAM WITH CAD ASSISTED INTERPRETATION & 3D TOMOSYNTHESIS COMPARISON:Prior mammograms 11/13/16, 10/25/15. INDICATIONS:screening FINDINGS: Scattered fibroglandular tissue noted. No suspicious mass, microcalcification or architectural distortion. No change compared to priors. DIAGNOSTIC CATEGORY 1--NEGATIVE. RECOMMENDATIONS: ROUTINE MAMMOGRAM AND CLINICAL EVALUATION. IMPRESSION: BIRADS 1: Negative. Annual mammographic screening recommended. Dictated by: Hernan Whitehead on 11/26/2017 at 12:13 Transcribed by: PEDRO on 11/26/2017 at 13:15 Approved by: Hernan Whitehead on 11/26/2017 at 15:21 [facility]
== END ==
LOC: MAMO 03:12
PROVIDERS: ATTEND Family Medicine
DX: Z13.820 Encounter for screening for osteoporosis (principal); Z12.31 Encounter for screening mammogram for malignant neoplasm of breast; Z78.0 Asymptomatic menopausal state
CPT/HCPCS: 77063; 77067; 77080

== ENCOUNTER → 2018-02-08 | Outpatient (CLI) | payer MEDICARE ==
[2017-02-24 17:11] VITALS: BMI 28.2
[~2018-02-08] MED LIST changes: +BARIUM SULFATE 176 GM BTL PO ONE; +BARIUM SULFATE 340 GM POWD ONE; -LOSA100T67 PO; +LOSA100T69 PO; +MIRT7.5T2 PO
--- NOTE | 2018-02-08 16:27 | RADIOLOGY IMAGING REPORT ---
FACILITY: [facility] PATIENT NAME: Libai Tam : 1935 MR: [id number] V: [id number] EXAM DATE: ORDERING PHYSICIAN: KALEY GARCIA TECHNOLOGIST: Location: [facility] - [place] Patient: Libia Tam : 1935 Visit/Account:[id number] Date of Sevice: 02/08/2018 Exam type: ESOPHAGRAM History: Food getting stuck, hx of esophegeal dilation Comparison: None. Findings: Double contrast esophagram was performed with thick and thin barium and air contrast. There is a sma ll to moderate hiatal hernia with high-grade narrowing at the lower esophageal sphincter. A 12 mm ba rium tablet did not pass through the narrowed segment. Moderate to large amount of gastroesophageal reflux was observed. The fluoroscopy dose area product was 567.43 micro-Roberto per meter squared IMPRESSION: 1. Small to moderate hiatal hernia with a high-grade narrowing at the lower esophageal sphincter. T here is failure of passage of a 12 mm barium tablet through this narrowing. Moderate to large amount of gastroesophageal reflux Report Dictated By: Emily Madison MD at 02/08/2018 4:20 PM Report E-Signed By: Emily Madison MD at 02/08/2018 4:24 PM WSN:[email or web address]
== END ==
LOC: RAD 01:26
PROVIDERS: ATTEND Family Medicine
DX: K44.9 Diaphragmatic hernia without obstruction or gangrene (principal); K21.9 Gastro-esophageal reflux disease without esophagitis
CPT/HCPCS: 74220

== ENCOUNTER 2018-04-14 03:53 | Day surgery (SDC) | payer MEDICARE ==
[2017-02-24 17:11] VITALS: Ht 142.2 cm; Wt 79.8 kg
[~2018-04-14] VITALS: Ht 142.2 cm; Wt 79.8 kg
[~2018-04-14 03:53] MED LIST changes: -BARIUM SULFATE 176 GM BTL PO ONE; -BARIUM SULFATE 340 GM POWD ONE; +CHOL10005 PO
[2018-04-14 11:12] VITALS: BP 190/95
[2018-04-14 11:40] VITALS: BP 166/92
--- NOTE | 2018-04-14 11:47 | Short(Outpt) Discharge Summary ---
Discharge Summary Reason for Hosp/Final Diag: (1) Dysphagia Status: Chronic Hospital Course & Plan: EGD with wire-guided bougie dilation completed without problems. (2) Hiatal hernia Status: Chronic (3) GERD (gastroesophageal reflux disease) Status: Chronic Departure Discharge to: Home, Self Care Discharge Instructions Home Meds Active Scripts Atorvastatin Calcium (ATORVASTATIN CALCIUM) 20 Mg Tablet, 40 MG PO QDAY for 90 Days, #90 TAB 4 Refills Prov:CLIVE MIRANDA MD 03/09/18 Mirtazapine (MIRTAZAPINE) 7.5 Mg Tablet, 7.5 MG PO QHS for 90 Days, #90 TAB Prov:KALEY GARCIA MD 03/05/18 Levothyroxine Sodium (LEVOTHYROXINE SODIUM) 50 Mcg Tablet, 1 TAB PO QDAY for 90 Days, #90 TAB 4 Refills Prov:KALEY GARCIA MD 10/12/17 Clopidogrel Bisulfate (CLOPIDOGREL) 75 Mg Tablet, 1 TAB PO QDAY for 90 Days, #90 TAB 4 Refills Prov:KALEY GARCIA MD 06/03/17 Ranitidine Hcl (ZANTAC) 150 Mg Tablet, 1 TAB PO BID PRN for HEARTBURN for 90 Days, #180 TAB 4 Refills Take 1 tab po daily for heartburn, may take twice daily if needed. Prov:KALEY GARCIA MD 06/03/17 Reported Medications Cholecalciferol (Vitamin D3) (VITAMIN D3) 1,000 Unit Tablet, 92257 UNIT PO QDAY, TAB 03/09/18 Aspirin (ASPIR 81) 81 Mg Tablet.dr, 1 TAB PO QDAY, TAB 04/13/17 Acetaminophen (TYLENOL EXTRA STRENGTH) 500 Mg Tablet, 2 TAB PO Q8H PRN for pain, TAB 11/03/16 Vit A/Vit C/Vit E/Zinc/Copper (ICAPS AREDS SOFTGEL) Unknown Strength Capsule, PO, CAPSULE 11/03/16 Discontinued Reported Medications Meclizine Hcl (MECLIZINE HCL) 25 Mg Tablet, 25 MG PO BID PRN for DIZZINESS 11/03/16 Discontinued Scripts Diclofenac Sodium 1% Gel (VOLTAREN 1% GEL) 100 Gm Gel..gram., 2 GM TOP QID for 30 Days, #1 TUBE 3 Refills Prov:KALEY GARCIA MD 06/03/17 Diet: Regular Activity: As Tolerated Special Instructions: Your upper endoscopy was completed without problems. Your tissues in your esophagus, stomach, and duodenum look healthy; no signs of cancer. I did see a narrowing in your lower esophagus and I dilated this. Continue taking ranitidine (Zantac) twice every day. Stick with a liquid diet today and tomorrow you can advance to a regular diet. Start taking Plavix (clopedogril) on 04/17/18. Please call my office if you have any questions or concerns or if the sensation of food hanging up in your esophagus persists or recurs. Happy Thanksgiving!! Problem Qualifiers (1) Dysphagia: Dysphagia type: esophageal phase Qualified Codes: R13.10 - Dysphagia, unspecified (2) GERD (gastroesophageal reflux disease): Esophagitis presence: without esophagitis Qualified Codes: K21.9 - Gastro- esophageal reflux disease without esophagitis CLIVE MIRANDA MD Apr 14, 2018 11:47
[2018-04-14] MEDS ORDERED: LIDOCAINE/SOD BICARB 8.4% SYR ID ONE (11:55)
[2018-04-14] MEDS ORDERED: NORMOSOL R SOLN(*) 1000 ML BAG 1,000 ML IV PRN (11:55)
[2018-04-14] MEDS ORDERED: PROPOFOL EMUL(*) 10MG/ML 20 ML 20 ML ONE (11:58)
[2018-04-14] MEDS ORDERED: LIDOCAINE MPF 1% 5 ML VIAL ONE (11:58)
[2018-04-14 12:00] VITALS: BP 180/108
[2018-04-14 12:40] VITALS: BP 195/115
[2018-04-14 12:42] VITALS: BP 189/101
== END 2018-04-14 12:50 | disposition home or self-care (01) ==
LOC: OR 03:53
PROVIDERS: ATTEND Surgery
DX: K22.2 Esophageal obstruction (principal); K44.9 Diaphragmatic hernia without obstruction or gangrene
CPT/HCPCS: 43248; J2001; J2704

== ENCOUNTER → 2018-05-05 | Outpatient (CLI) | payer MEDICARE ==
[2017-02-24 17:11] VITALS: BMI 28.2
[~2018-05-05] MED LIST changes: -LOSA100T69 PO; +LOSA100T75 PO
[2018-05-05 14:17] LABS: PLATELET COUNT, AUTOMATED 278 K/uL (150-450)
[2018-05-05 14:21] LABS: LDL CHOLESTEROL 31 mg/dl
== END ==
LOC: LAB 13:50
PROVIDERS: ATTEND Family Medicine
DX: E78.5 Hyperlipidemia, unspecified (principal); E03.9 Hypothyroidism, unspecified; I10 Essential (primary) hypertension
CPT/HCPCS: 36415; 82040; 82247; 82310; 82374; 82435; 82465; 82565; 82947; 83718; 84075; 84132; 84155; 84295; 84443; 84450; 84460; 84478; 84520; 85025

== ENCOUNTER → 2018-07-06 | Outpatient (CLI) | payer MEDICARE ==
[2017-02-24 17:11] VITALS: BMI 28.2
[~2018-07-06] MED LIST changes: +LISI5TAB25 PO
== END ==
LOC: LAB 15:38
PROVIDERS: ATTEND Family Medicine
DX: I10 Essential (primary) hypertension (principal)
CPT/HCPCS: 36415; 82310; 82374; 82435; 82565; 82947; 84132; 84295; 84520

== ENCOUNTER 2018-10-11 17:24 | Inpatient (IN) | payer MEDICARE ==
[~2018-10-11] VITALS: Ht 170.2 cm; Wt 85.7 kg
[~2018-10-11 17:24] MED LIST changes: -ROS10 PO; +ROSU10TA PO
--- NOTE | 2018-10-11 17:30 | ER Report ---
History and Physical Time Seen By MD: 17:29 HPI/ROS CHIEF COMPLAINT: Fall HISTORY OF PRESENT ILLNESS: This is an 83-year-old female presents to the emergency department for a fall. Patient is status post stroke about one year ago, affecting her left side, she does have generalized weakness on the left. She is taking Plavix. She states that today she was in her kitchen, got her feet tangled up and fell down hitting her head on a cabinet door and then falling to the ground injuring her right hip. She denies loss of consciousness. She denies hitting her head on the ground, denies c-spine tenderness. There is no obvious deformities, external or internal rotation of the right leg. No bruising. She denies recent fevers or chills. Denies chest pain or shortness of breath. No other complaints. REVIEW OF SYSTEMS: Constitutional: No fever, no chills. Eyes: No discharge. ENT: No sore throat. Cardiovascular: No chest pain, no palpitations. Respiratory: No cough, no shortness of breath. Gastrointestinal: No abdominal pain, no vomiting. Genitourinary: No hematuria. Musculoskeletal: As above. Skin: No rashes. Neurological: As above. Allergies: Coded Allergies: NSAIDS (Non-Steroidal Anti-Inflamma (Verified Allergy, Unknown, 10/11/18) Penicillins (Verified Allergy, Unknown, 10/11/18) amoxicillin (Verified Allergy, Unknown, 10/11/18) clavulanic acid (Verified Allergy, Unknown, 10/11/18) Home Meds Active Scripts Ranitidine Hcl (ZANTAC) 150 Mg Tablet, 1 TAB PO BID PRN for HEARTBURN for 90 Days, #180 TAB 4 Refills Take 1 tab po daily for heartburn, may take twice daily if needed. Prov:KALEY GARCIA MD 09/13/18 Clopidogrel Bisulfate (CLOPIDOGREL) 75 Mg Tablet, 1 TAB PO QDAY for 90 Days, #90 TAB 4 Refills Prov:AKLEY GARCIA MD 09/07/18 Lisinopril (LISINOPRIL) 5 Mg Tablet, 1 TAB PO QDAY for 90 Days, #90 TAB 2 Refills Prov:KALEY GARCIA MD 07/20/18 Mirtazapine (MIRTAZAPINE) 7.5 Mg Tablet, 1-2 TAB PO QHS for 90 Days, #180 TAB 1 Refill Prov:KALEY GARCIA MD 07/06/18 Atorvastatin Calcium (ATORVASTATIN CALCIUM) 20 Mg Tablet, 0.5-1 TAB PO QDAY for 90 Days, #90 TAB 4 Refills Prov:KALEY GARCIA MD 05/10/18 Meclizine Hcl (MECLIZINE HCL) 25 Mg Tablet, 25 MG PO BID PRN for DIZZINESS for 15 Days, #30 TAB Prov:KALEY GARCIA MD 05/05/18 Levothyroxine Sodium (LEVOTHYROXINE SODIUM) 50 Mcg Tablet, 1 TAB PO QDAY for 90 Days, #90 TAB 4 Refills Prov:KALEY GARCIA MD 10/12/17 Reported Medications Cholecalciferol (Vitamin D3) (VITAMIN D3) 1,000 Unit Tablet, 01345 UNIT PO QDAY, TAB 03/09/18 Acetaminophen (TYLENOL EXTRA STRENGTH) 500 Mg Tablet, 2 TAB PO Q8H PRN for pain, TAB 11/03/16 Vit A/Vit C/Vit E/Zinc/Copper (ICAPS AREDS SOFTGEL) Unknown Strength Capsule, PO, CAPSULE 11/03/16 Past Medical/Surgical History The patient has a past medical and surgical history of CVA March 2017, hypertension, hypercholesterolemia, 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 Reviewed Nurses Notes: Yes Hx Smoking: No Smoking Status: Never Smoker Exposure to Second Hand Smoke?: Yes (CHILDHOOD) Hx Substance Use Disorder: No Hx Alcohol Use: No Constitutional Vital Sign - Last 24 Hours 10/11/18 10/11/18 10/11/18 10/11/18 17:24 17:33 17:34 17:39 Temp 97.5 Pulse ??? 89 88 Resp 18 B/P (MAP) 179/91 (120) 179/91 Pulse Ox 93 92 O2 Delivery Room Air 10/11/18 10/11/18 10/11/18 10/11/18 17:54 18:00 18:09 18:24 Pulse 92 ??? 90 B/P (MAP) 157/81 (106) Pulse Ox 95 94 10/11/18 10/11/18 10/11/18 10/11/18 18:30 18:39 18:54 18:59 Pulse 93 95 95 B/P (MAP) 154/77 (102) Pulse Ox 91 89 89 10/11/18 10/11/18 10/11/18 10/11/18 19:00 19:14 19:20 19:29 Pulse ? B/P (MAP) ???/??? (1665) 164/91 (115) Pulse Ox 85 87 10/11/18 10/11/18 10/11/18 10/11/18 19:30 19:44 19:59 20:00 Pulse 97 ??? B/P (MAP) 170/103 (125) 169/87 (114) Pulse Ox 88 10/11/18 10/11/18 10/11/18 10/11/18 20:14 20:29 20:34 20:49 Pulse 101 ? Pulse Ox 90 88 10/11/18 10/11/18 10/11/18 10/11/18 21:00 21:04 21:19 21:30 Pulse 104 ??? B/P (MAP) 171/90 (117) 170/108 (128) Pulse Ox 91 10/11/18 10/11/18 10/11/18 10/11/18 21:34 21:49 22:00 22:04 Pulse 104 ??? 110 B/P (MAP) 193/90 (124) Pulse Ox 89 90 10/11/18 10/11/18 10/11/18 10/11/18 22:19 22:24 22:39 22:54 Pulse 106 107 107 ??? Pulse Ox 89 89 90 Physical Exam General Appearance: The patient is alert, has no immediate need for airway protection and no signs of toxicity. Eyes: Pupils equal and round no pallor or injection. ENT, Mouth: Mucous membranes are moist. Respiratory: There are no retractions, lungs are clear to auscultation. Cardiovascular: Regular rate and rhythm. No murmurs, clicks or rubs. Gastrointestinal: Abdomen is soft and non tender, no masses, bowel sounds normal. Neurological: Alert and oriented 4. Moving all extremities. Following all commands. There is some mild weakness to the left upper and lower extremities, this is normal since the patient's CVA. Skin: Warm and dry, no rashes. Musculoskeletal: Neck is supple non tender. No C-spine tenderness. Extremities right posterior hip pain with palpation, no hematoma, crepitus identified. No internal or external rotation. CMS intact. DIFFERENTIAL DIAGNOSIS: After history and physical exam differential diagnosis was considered for contusion, femur fracture, pelvic fracture, dislocation, concussion, intracranial bleed. Medical Decision Making Data Points Result Diagram: 10/11/18190110/11/181901 Laboratory Hematology Test 10/11/18 17:40 10/11/18 19:02 Urine Color Yellow Urine Clarity Cloudy Urine pH 5.0 pH (4.8-9.5) Urine Specific Wells 1.020 Urine Protein Negative mg/dL (NEGATIVE) Urine Glucose (UA) Negative mg/dL (NEGATIVE) Urine Ketones Negative mg/dL (NEGATIVE) Urine Blood Negative (NEGATIVE) Urine Nitrite Negative (NEGATIVE) Urine Bilirubin Negative (NEGATIVE) Urine Urobilinogen Negative mg/dL (0.2-1.9) Urine Leukocyte Esterase Moderate (NEGATIVE) Urine RBC 12 /HPF (0-2/HPF) Urine WBC 131 /HPF (0-5/HPF) Urine Squamous Epithelial Cells Many /LPF (NONE-FEW) Urine Bacteria Moderate /HPF (NONE-FEW) Urine Hyaline Casts Few /LPF (NONE-FEW) Urine Mucus Few /HPF (NONE-FEW) Urine Yeast (Budding) Few /HPF Red Blood Count 4.48 M/uL (4.17-5.56) Mean Corpuscular Volume 91.7 fL (80.0-96.0) Mean Corpuscular Hemoglobin 30.8 pg (26.0-33.0) Mean Corpuscular Hemoglobin Concent 33.6 g/dL (32.0-36.0) Red Cell Distribution Width 13.7 % (11.5-14.5) Mean Platelet Volume 8.7 fL (7.2-11.1) Neutrophils (%) (Auto) % (39.4-72.5) Lymphocytes (%) (Auto) % (17.6-49.6) Monocytes (%) (Auto) % (4.1-12.4) Eosinophils (%) (Auto) % (0.4-6.7) Basophils (%) (Auto) % (0.3-1.4) Nucleated RBC Relative Count (auto) /100WBC Neutrophils # (Auto) K/uL (2.0-7.4) Lymphocytes # (Auto) K/uL (1.3-3.6) Monocytes # (Auto) K/uL (0.3-1.0) Eosinophils # (Auto) K/uL (0.0-0.5) Basophils # (Auto) K/uL (0.0-0.1) Nucleated RBC Absolute Count (auto) K/uL Neutrophils % (Manual) 78 % (39.4-72.5) Lymphocytes % (Manual) 10 % (17.6-49.6) Monocytes % (Manual) 9 % (4.1-12.4) Eosinophils % (Manual) 3 % (0.4-6.7) Basophils % (Manual) 0 % (0.3-1.4) Peripheral Blood Smear Yes Y/N Prothrombin Time 15.1 seconds (12.0-14.4) Prothromb Time International Ratio 1.18 Activated Partial Thromboplast Time 31 seconds (23-35) Sodium Level 142 mmol/L (137-145) Potassium Level 3.4 mmol/L (3.5-5.0) Chloride Level 107 mmol/L (98-107) Carbon Dioxide Level 27 mmol/L (22-31) Blood Urea Nitrogen 18 mg/dl (7-18) Creatinine 0.70 mg/dl (0.52-1.04) Glomerular Filtration Rate Calc > 60.0 Random Glucose 112 mg/dl (75-110) Calcium Level 9.2 mg/dl (8.4-10.2) Total Bilirubin 0.2 mg/dl (0.2-1.3) Aspartate Amino Transf (AST/SGOT) 29 U/L (0-35) Alanine Aminotransferase (ALT/SGPT) 26 U/L (0-56) Alkaline Phosphatase 99 U/L (0-126) Total Protein 7.5 g/dl (6.3-8.2) Albumin 4.3 g/dl (3.5-5.0) Chemistry Test 10/11/18 17:40 10/11/18 19:02 Urine Color Yellow Urine Clarity Cloudy Urine pH 5.0 pH (4.8-9.5) Urine Specific Wells 1.020 Urine Protein Negative mg/dL (NEGATIVE) Urine Glucose (UA) Negative mg/dL (NEGATIVE) Urine Ketones Negative mg/dL (NEGATIVE) Urine Blood Negative (NEGATIVE) Urine Nitrite Negative (NEGATIVE) Urine Bilirubin Negative (NEGATIVE) Urine Urobilinogen Negative mg/dL (0.2-1.9) Urine Leukocyte Esterase Moderate (NEGATIVE) Urine RBC 12 /HPF (0-2/HPF) Urine WBC 131 /HPF (0-5/HPF) Urine Squamous Epithelial Cells Many /LPF (NONE-FEW) Urine Bacteria Moderate /HPF (NONE-FEW) Urine Hyaline Casts Few /LPF (NONE-FEW) Urine Mucus Few /HPF (NONE-FEW) Urine Yeast (Budding) Few /HPF White Blood Count 14.9 k/uL (4.5-11.0) Red Blood Count 4.48 M/uL (4.17-5.56) Hemoglobin 13.8 g/dL (12.0-16.0) Hematocrit 41.1 % (34.0-47.0) Mean Corpuscular Volume 91.7 fL (80.0-96.0) Mean Corpuscular Hemoglobin 30.8 pg (26.0-33.0) Mean Corpuscular Hemoglobin Concent 33.6 g/dL (32.0-36.0) Red Cell Distribution Width 13.7 % (11.5-14.5) Platelet Count 270 K/uL (150-450) Mean Platelet Volume 8.7 fL (7.2-11.1) Neutrophils (%) (Auto) % (39.4-72.5) Lymphocytes (%) (Auto) % (17.6-49.6) Monocytes (%) (Auto) % (4.1-12.4) Eosinophils (%) (Auto) % (0.4-6.7) Basophils (%) (Auto) % (0.3-1.4) Nucleated RBC Relative Count (auto) /100WBC Neutrophils # (Auto) K/uL (2.0-7.4) Lymphocytes # (Auto) K/uL (1.3-3.6) Monocytes # (Auto) K/uL (0.3-1.0) Eosinophils # (Auto) K/uL (0.0-0.5) Basophils # (Auto) K/uL (0.0-0.1) Nucleated RBC Absolute Count (auto) K/uL Neutrophils % (Manual) 78 % (39.4-72.5) Lymphocytes % (Manual) 10 % (17.6-49.6) Monocytes % (Manual) 9 % (4.1-12.4) Eosinophils % (Manual) 3 % (0.4-6.7) Basophils % (Manual) 0 % (0.3-1.4) Peripheral Blood Smear Yes Y/N Prothrombin Time 15.1 seconds (12.0-14.4) Prothromb Time International Ratio 1.18 Activated Partial Thromboplast Time 31 seconds (23-35) Glomerular Filtration Rate Calc > 60.0 Calcium Level 9.2 mg/dl (8.4-10.2) Total Bilirubin 0.2 mg/dl (0.2-1.3) Aspartate Amino Transf (AST/SGOT) 29 U/L (0-35) Alanine Aminotransferase (ALT/SGPT) 26 U/L (0-56) Alkaline Phosphatase 99 U/L (0-126) Total Protein 7.5 g/dl (6.3-8.2) Albumin 4.3 g/dl (3.5-5.0) Coagulation Test 10/11/18 19:02 Prothrombin Time 15.1 seconds Prothromb Time International Ratio 1.18 Activated Partial Thromboplast Time 31 seconds Urinalysis Test 10/11/18 17:40 Urine Color Yellow Urine Clarity Cloudy Urine pH 5.0 pH (4.8-9.5) Urine Specific Wells 1.020 Urine Protein Negative mg/dL (NEGATIVE) Urine Glucose (UA) Negative mg/dL (NEGATIVE) Urine Ketones Negative mg/dL (NEGATIVE) Urine Blood Negative (NEGATIVE) Urine Nitrite Negative (NEGATIVE) Urine Bilirubin Negative (NEGATIVE) Urine Urobilinogen Negative mg/dL (0.2-1.9) Urine Leukocyte Esterase Moderate (NEGATIVE) Urine RBC 12 /HPF (0-2/HPF) Urine WBC 131 /HPF (0-5/HPF) Urine Squamous Epithelial Cells Many /LPF (NONE-FEW) Urine Bacteria Moderate /HPF (NONE-FEW) Urine Hyaline Casts Few /LPF (NONE-FEW) Urine Mucus Few /HPF (NONE-FEW) Urine Yeast (Budding) Few /HPF EKG/Imaging EKG Interpretation 12 lead EKG: Time of EKG 1910. Rhythm: Normal sinus rhythm, ventricular rate 92 bpm. [place]: normal QRS: normal ST segments: No ST depression or elevation identified. Poor T-wave progression in the the leads otherwise unremarkable. No significant changes from the 10/21/2017 EKG other than poor T-wave progression. Imaging PATIENT NAME: Libia Tam : 1935 MR: [id number] V: [id number] EXAM DATE: ORDERING PHYSICIAN: RIYA MOE TECHNOLOGIST: Location: [facility] Patient: Libia Tam : 1935 Visit/Account:[id number] Date of Sevice: 10/11/2018 EXAMINATION: CT right hip without IV contrast CT abdomen and pelvis with IV contrast HISTORY: Trauma. Fall. Right hip pain. TECHNIQUE: Axial CT images of the right hip were obtained without IV contrast, with coronal and sagittal 2D reconstructed images. Axial CT images of the abdomen and pelvis were then obtained with IV contrast, with coronal and sagittal 2D reconstructed images. One of the following dose optimization techniques was utilized in the performance of this exam: Automated exposure control; adjustment of the mA and/or kV according to the patient's size; or use of an iterative reconstruction technique. Specific details can be referenced in the facility's radiology CT exam operational policy. Contrast: 75 mL of IV Isovue-370. COMPARISON: None. FINDINGS: CT right hip: There is a mildly comminuted and displaced fracture along the medial aspect of the right superior pubic ramus. There is a nondisplaced fracture along the right inferior pubic ramus. Small amount of soft tissue hemorrhage surrounds the right superior pubic ramus fracture. There is a nondisplaced fracture along the posterior aspect of the right iliac crest, extending inferiorly along the posterior right iliac bone. Fracture line extends to the superior aspect of the right sacroiliac joint. Normal and symmetric alignment at the sacroiliac joints. Faint fracture line across the superior right corner of the upper right sacral ala. Normal alignment at the right hip. The proximal right femur is intact. The right acetabulum is intact. Mild chronic degenerative changes at the right hip with mild joint space narrowing and osteophyte formation. CT abdomen/pelvis: Liver: Negative. Gallbladder and bile ducts: Negative. Spleen: Negative. Pancreas: Negative. Adrenal glands: Negative. Kidneys: Negative. The kidneys enhance normally. No retroperitoneal fluid or hemorrhage. Bowel and peritoneum: The small bowel and colon are normal in caliber. Scattered colonic diverticulosis. No free fluid or free intraperitoneal air. Small hiatal hernia. Pelvic structures: Oakley catheter in the urinary bladder. Prior hysterectomy. Lymph node assessment: Negative. Vessels: Scattered vascular calcifications. Normal caliber abdominal aorta. The IVC is patent. Musculoskeletal: There is a fracture through the tip of the right transverse process of L5. No other evidence of acute fracture or subluxation along the lumbar spine. Vertebral body height is maintained. There are advanced chronic multilevel spondylotic changes in the lumbar spine. There is mild chronic appearing retrolisthesis of L2 on L3 and mild chronic appearing anterolisthesis of L4 on L5 related to posterior facet arthropathy. Right pelvic fractures again noted as described above. Extraperitoneal soft tissue hemorrhage in the right pelvis adjacent to the pubic rami fractures. No additional fracture in the left pelvis. Body wall: Negative. Lung bases: Negative. IMPRESSION: 1. Right-sided pelvic fractures. There is a comminuted and mildly displaced fracture of the right superior pubic ramus and a nondisplaced fracture of the right inferior pubic ramus. Nondisplaced fracture along the posterior right iliac crest extending into the sacroiliac joint. Faint fracture line across the superior right corner of the right sacral ala. 2. Nondisplaced fracture through the tip of the right transverse process of L5. 3. Small amount of extraperitoneal soft tissue hemorrhage in the right pelvis adjacent to the pubic rami fractures. 4. No other acute traumatic findings in the abdomen or pelvis. Report Dictated By: Robin Arroyo MD at 8:55 PM Report E-Signed By: Robin Arroyo MD at 10/11/2018 9:17 PM WSN:[id number] PATIENT NAME: Libia Tam : 1935 MR: [id number] V: [id number] EXAM DATE: ORDERING PHYSICIAN: CALLI HANSON TECHNOLOGIST: Location: [facility] Patient: Libia Tam : 1935 Visit/Account:[id number] Date of Sevice: 10/11/2018 Study: CT scan of the brain without intravenous contrast. Indication: Head trauma Comparison study: October 21, 2017 Technique: Multiple axial images were obtained through the brain without the use of intravenous contrast. One of the following dose optimization techniques was utilized in the performance of this exam: Automated exposure control; adjustment of the mA and/or kV according to the patient's size; or use of an iterative reconstruction technique. Specific details can be referenced in the facility's radiology CT exam operational policy. The examination demonstrates no evidence of acute intracranial hemorrhage. There is no evidence of extra-axial collection or hydrocephalus. There are patchy areas of low density within the periventricular white matter. This is unchanged as compared to the previous study and consistent with chronic ischemia. There is an old right external capsule infarct present. This is unchanged. There is no evidence of disruption of the peripheral barrera-white junction. The bony structures are unremarkable. IMPRESSION: No acute intracranial abnormality identified. There is no significant change from the previous study. Report Dictated By: Alden Lynch at 10/11/2018 6:35 PM Report E-Signed By: Alden Lynch at 10/11/2018 6:38 PM WSN:[id number] PATIENT NAME: Libia Tam : 1935 MR: [id number] V: [id number] EXAM DATE: ORDERING PHYSICIAN: CALLI HANSON TECHNOLOGIST: Location: [facility] Patient: Libia Tam : 1935 Visit/Account:[id number] Date of Sevice: 10/11/2018 Study: HIP RIGHT Indication: Injury Comparison study: None available Findings: AP view of the pelvis and a frog-leg view of the right hip demonstrates no evidence of fracture of the femoral head or neck on the right side. The right pubic rami are fractured. The medial aspect of the superior and inferior pubic rami fracture. There is displacement of the fractures. IMPRESSION: Displaced fractures of the medial right superior and inferior pubic rami. Report Dictated By: Alden Lynch at 10/11/2018 6:38 PM Report E-Signed By: Alden Lynch at 10/11/2018 6:40 PM WSN:[id number] ED Course/Re-evaluation Clinical Indication for ER IV: IV Access ED Course The patient was admitted to room. A history of physical obtained. Differential diagnoses were considered. Initially an x-ray of the right hip showing Displaced fractures of the medial right superior and inferior pubic rami. No acute pathology identified on the head CT. I did review the results with the patient and her family the bedside, did recommend a CT for more in-depth evaluation and vasculature, they agreed. An IV was started. A CBC, CMP coag studies and type and screen were obtained. Patient was given 2 mg IV morphine for the discomfort. EKG obtained showing normal sinus rhythm. Oakley catheter placed. CT of the abdomen and pelvis and hip showing Right-sided pelvic fractures. There is a comminuted and mildly displaced fracture of the right superior pubic ramus and a nondisplaced fracture of the right inferior pubic ramus. Nondisplaced fracture along the posterior right iliac crest extending into the sacroiliac joint. [place] t fracture line across the superior right corner of the right sacral ala. Nondisplaced fracture through the tip of the right transverse process of L5. Small amount of extraperitoneal soft tissue hemorrhage in the right pelvis adjacent to the pubic rami fractures. I did contact Dr. Stephenson, we did review the case, he is in evaluating the patient. She will be admitted to Dr. Joseph services for pelvic fracture and fall. 10/11/2018 9:56:39 pm I did speak with Dr. Stephenson, the trauma surgeon on-call regarding the patient's case, he will come in to evaluate the patient's at which time we can make some decisions on whether or not the patient needs to be transferred were week and keep the patient locally. 10/11/2018 10:23:[address] Stephenson is here evaluating the patient. 10/11/2018 10:56:[address] Stephenson has accepted the patient into the trauma services. Decision to Disposition Date: October 11, 2018 Decision to Disposition Time: 22:56 Depart Departure Latest Vital Signs Vital Signs Date Time Temp Pulse Resp B/P (MAP) Pulse Ox O2 Delivery O2 Flow Rate FiO2 10/11/18 22:54 ??? 10/11/18 22:39 90 10/11/18 22:00 193/90 (124) 10/11/18 17:34 97.5 18 Room Air Impression: Primary Impression: Fracture of right inferior pubic ramus Additional Impressions: Fracture of right superior pubic ramus Fall from standing Condition: Improved Disposition: Admitted from ER Referrals: KALEY GARCIA MD (PCP) Problem Qualifiers Primary Impression: Fracture of right inferior pubic ramus Encounter type: initial encounter Fracture type: closed Qualified Codes: S32.591A - Other specified fracture of right pubis, initial encounter for closed fracture Additional Impressions: Fracture of right superior pubic ramus Encounter type: initial encounter Fracture type: closed Qualified Codes: S32.511A - Fracture of superior rim of right pubis, initial encounter for closed fracture Fall from standing Encounter type: initial encounter Qualified Codes: W19.XXXA - Unspecified fall, initial encounter CALLI HANSON-SUSSY October 11, 2018 17:30
--- NOTE | 2018-10-11 18:42 | RADIOLOGY IMAGING REPORT ---
FACILITY: [facility] PATIENT NAME: Libia Tam : 1935 MR: [id number] V: [id number] EXAM DATE: ORDERING PHYSICIAN: CALLI HANSON TECHNOLOGIST: Location: [facility] Patient: Libia Tam : 1935 Visit/Account:[id number] Date of Sevice: 10/11/2018 Study: CT scan of the brain without intravenous contrast. Indication: Head trauma Comparison study: October 21, 2017 Technique: Multiple axial images were obtained through the brain without the use of intravenous contr ast. One of the following dose optimization techniques was utilized in the performance of this exam: Autom ated exposure control; adjustment of the mA and/or kV according to the patient's size; or use of an i terative reconstruction technique. Specific details can be referenced in the facility's radiology C T exam operational policy. The examination demonstrates no evidence of acute intracranial hemorrhage. There is no evidence of ex tra-axial collection or hydrocephalus. There are patchy areas of low density within the periventricular white matter. This is unchanged as c ompared to the previous study and consistent with chronic ischemia. There is an old right external capsule infarct present. This is unchanged. There is no evidence of disruption of the peripheral barrera-white junction. The bony structures are unremarkable. IMPRESSION: No acute intracranial abnormality identified. There is no significant change from the pre vious study. Report Dictated By: Alden Lynch at 10/11/2018 6:35 PM Report E-Signed By: Adlen Lynch at 10/11/2018 6:38 PM WSN:[id number]
--- NOTE | 2018-10-11 18:44 | RADIOLOGY IMAGING REPORT ---
[place] [facility] [place] Libia Tam : 1935 MR: [id number] V: [id number] EXAM DATE: ORDERING PHYSICIAN: CALLI HANSON TECHNOLOGIST: [place] [facility] [place] Libia Tam : 1935 Visit/Account:[id number] Date of Sevice: 10/11/2018 Study: HIP RIGHT Indication: Injury Comparison study: None available Findings: AP view of the pelvis and a frog-leg view of the right hip demonstrates no evidence of frac ture of the femoral head or neck on the right side. The right pubic rami are fractured. The medial as pect of the superior and inferior pubic rami fracture. There is displacement of the fractures. IMPRESSION: Displaced fractures of the medial right superior and inferior pubic rami. Report Dictated By: Alden Lynch at 10/11/2018 6:38 PM Report E-Signed By: Alden Lynch at 10/11/2018 6:40 PM WSN:[id number]
[2018-10-11] MEDS ORDERED: DIPHTH/TETANUS/ACEL. PERTUSSIS IM ONLY ONE (18:50)
[2018-10-11] MEDS ORDERED: IOPAMIDOL 76% 100 ML INFUS BTL 100 ML ONE (18:55)
[2018-10-11] MEDS ORDERED: MORPHINE 2 MG/ML SYR IVP ONE (19:10)
[2018-10-11 19:16] LABS: PLATELET COUNT, AUTOMATED 270 K/uL (150-450)
[2018-10-11 19:22] LABS: INR 1.18
--- NOTE | 2018-10-11 19:30 | EKG ---
FACILITY: [facility] PATIENT NAME: JIMBO LAWS : [id number] MR: [id number] V: [id number] EXAM DATE: ORDERING PHYSICIAN: CALLI HANSON TECHNOLOGIST: ERNESTINA Test Reason : POSS SX Blood Pressure : / mmHG Vent. Rate : 092 BPM Atrial Rate : 092 BPM P-R Int : 172 ms QRS Dur : 074 ms QT Int : 386 ms P-R-T Axes : 058 -32 016 degrees QTc Int : 477 ms Normal sinus rhythm Left axis deviation Anterior infarct (cited on or before 21-OCT-2017) Abnormal ECG When compared with ECG of 21-OCT-2017 17:19, Nonspecific T wave abnormality now evident in Anterior leads Confirmed by CLIVE BECERRA ([id number]) on 10/12/2018 6:32:37 AM Referred By: Confirmed By:CLIVE BECERRA
--- NOTE | 2018-10-11 21:22 | RADIOLOGY IMAGING REPORT ---
FACILITY: [facility] [place] PATIENT NAME: Libia Tam : 1935 MR: [id number] V: [id number] EXAM DATE: ORDERING PHYSICIAN: RIYA MOE TECHNOLOGIST: Location: [facility] Patient: Libia Tam : 1935 Visit/Account:[id number] Date of Sevice: 10/11/2018 EXAMINATION: CT right hip without IV contrast CT abdomen and pelvis with IV contrast HISTORY: Trauma. Fall. Right hip pain. TECHNIQUE: Axial CT images of the right hip were obtained without IV contrast, with coronal and sagittal 2D chadd nstructed images. Axial CT images of the abdomen and pelvis were then obtained with IV contrast, with coronal and sagit ana 2D reconstructed images. One of the following dose optimization techniques was utilized in the performance of this exam: Autom ated exposure control; adjustment of the mA and/or kV according to the patient's size; or use of an i terative reconstruction technique. Specific details can be referenced in the facility's radiology C T exam operational policy. Contrast: 75 mL of IV Isovue-370. COMPARISON: None. FINDINGS: CT right hip: There is a mildly comminuted and displaced fracture along the medial aspect of the right superior pub ic ramus. There is a nondisplaced fracture along the right inferior pubic ramus. Small amount of so ft tissue hemorrhage surrounds the right superior pubic ramus fracture. There is a nondisplaced fracture along the posterior aspect of the right iliac crest, extending infer iorly along the posterior right iliac bone. Fracture line extends to the superior aspect of the rig ht sacroiliac joint. Normal and symmetric alignment at the sacroiliac joints. Faint fracture line a cross the superior right corner of the upper right sacral ala. Normal alignment at the right hip. The proximal right femur is intact. The right acetabulum is inta ct. Mild chronic degenerative changes at the right hip with mild joint space narrowing and osteophyt e formation. CT abdomen/pelvis: Liver: Negative. Gallbladder and bile ducts: Negative. Spleen: Negative. Pancreas: Negative. Adrenal glands: Negative. Kidneys: Negative. The kidneys enhance normally. No retroperitoneal fluid or hemorrhage. Bowel and peritoneum: The small bowel and colon are normal in caliber. Scattered colonic diverticul osis. No free fluid or free intraperitoneal air. Small hiatal hernia. Pelvic structures: Oakley catheter in the urinary bladder. Prior hysterectomy. Lymph node assessment: Negative. Vessels: Scattered vascular calcifications. Normal caliber abdominal aorta. The IVC is patent. Musculoskeletal: There is a fracture through the tip of the right transverse process of L5. No oth er evidence of acute fracture or subluxation along the lumbar spine. Vertebral body height is mainta ined. There are advanced chronic multilevel spondylotic changes in the lumbar spine. There is mild chronic appearing retrolisthesis of L2 on L3 and mild chronic appearing anterolisthesis of L4 on L5 r elated to posterior facet arthropathy. Right pelvic fractures again noted as described above. Extraperitoneal soft tissue hemorrhage in the right pelvis adjacent to the pubic rami fractures. No additional fracture in the left pelvis. Body wall: Negative. Lung bases: Negative. IMPRESSION: 1. Right-sided pelvic fractures. There is a comminuted and mildly displaced fracture of the right s uperior pubic ramus and a nondisplaced fracture of the right inferior pubic ramus. Nondisplaced frac ture along the posterior right iliac crest extending into the sacroiliac joint. Faint fracture line across the superior right corner of the right sacral ala. 2. Nondisplaced fracture through the tip of the right transverse process of L5. 3. Small amount of extraperitoneal soft tissue hemorrhage in the right pelvis adjacent to the pubic rami fractures. 4. No other acute traumatic findings in the abdomen or pelvis. Report Dictated By: Robin Arroyo MD at 8:55 PM Report E-Signed By: Robin Arroyo MD at 10/11/2018 9:17 PM WSN:[email or web address]
--- NOTE | 2018-10-11 21:22 | RADIOLOGY IMAGING REPORT ---
FACILITY: [facility] [place]IENT NAME: Libia Tam : 1935 MR: [id number] V: [id number] EXAM DATE: ORDERING PHYSICIAN: RIYA MOE TECHNOLOGIST: Location: [facility] Patient: Libia Tam : 1935 Visit/Account:[id number] Date of Sevice: 10/11/2018 EXAMINATION: CT right hip without IV contrast CT abdomen and pelvis with IV contrast HISTORY: Trauma. Fall. Right hip pain. TECHNIQUE: Axial CT images of the right hip were obtained without IV contrast, with coronal and sagittal 2D chadd nstructed images. Axial CT images of the abdomen and pelvis were then obtained with IV contrast, with coronal and sagit ana 2D reconstructed images. One of the following dose optimization techniques was utilized in the performance of this exam: Autom ated exposure control; adjustment of the mA and/or kV according to the patient's size; or use of an i terative reconstruction technique. Specific details can be referenced in the facility's radiology C T exam operational policy. Contrast: 75 mL of IV Isovue-370. COMPARISON: None. FINDINGS: CT right hip: There is a mildly comminuted and displaced fracture along the medial aspect of the right superior pub ic ramus. There is a nondisplaced fracture along the right inferior pubic ramus. Small amount of so ft tissue hemorrhage surrounds the right superior pubic ramus fracture. There is a nondisplaced fracture along the posterior aspect of the right iliac crest, extending infer iorly along the posterior right iliac bone. Fracture line extends to the superior aspect of the rig ht sacroiliac joint. Normal and symmetric alignment at the sacroiliac joints. Faint fracture line a cross the superior right corner of the upper right sacral ala. Normal alignment at the right hip. The proximal right femur is intact. The right acetabulum is inta ct. Mild chronic degenerative changes at the right hip with mild joint space narrowing and osteophyt e formation. CT abdomen/pelvis: Liver: Negative. Gallbladder and bile ducts: Negative. Spleen: Negative. Pancreas: Negative. Adrenal glands: Negative. Kidneys: Negative. The kidneys enhance normally. No retroperitoneal fluid or hemorrhage. Bowel and peritoneum: The small bowel and colon are normal in caliber. Scattered colonic diverticul osis. No free fluid or free intraperitoneal air. Small hiatal hernia. Pelvic structures: Oakley catheter in the urinary bladder. Prior hysterectomy. Lymph node assessment: Negative. Vessels: Scattered vascular calcifications. Normal caliber abdominal aorta. The IVC is patent. Musculoskeletal: There is a fracture through the tip of the right transverse process of L5. No oth er evidence of acute fracture or subluxation along the lumbar spine. Vertebral body height is mainta ined. There are advanced chronic multilevel spondylotic changes in the lumbar spine. There is mild chronic appearing retrolisthesis of L2 on L3 and mild chronic appearing anterolisthesis of L4 on L5 r elated to posterior facet arthropathy. Right pelvic fractures again noted as described above. Extraperitoneal soft tissue hemorrhage in the right pelvis adjacent to the pubic rami fractures. No additional fracture in the left pelvis. Body wall: Negative. Lung bases: Negative. IMPRESSION: 1. Right-sided pelvic fractures. There is a comminuted and mildly displaced fracture of the right s uperior pubic ramus and a nondisplaced fracture of the right inferior pubic ramus. Nondisplaced frac ture along the posterior right iliac crest extending into the sacroiliac joint. Faint fracture line across the superior right corner of the right sacral ala. 2. Nondisplaced fracture through the tip of the right transverse process of L5. 3. Small amount of extraperitoneal soft tissue hemorrhage in the right pelvis adjacent to the pubic rami fractures. 4. No other acute traumatic findings in the abdomen or pelvis. Report Dictated By: Robin Arroyo MD at 8:55 PM Report E-Signed By: Robin Arroyo MD at 10/11/2018 9:17 PM WSN:[email or web address]
[2018-10-11] MEDS ORDERED: ONDANSETRON 4 MG/2 ML VIAL IVP PRN (23:00)
[2018-10-11] MEDS ORDERED: FLUSH 10 ML SYR IVP PRN (23:00)
[2018-10-11] MEDS ORDERED: HYDROmorphone HCL 2 MG/ML SDV IVP PRN (23:00)
[2018-10-11 23:33] VITALS: BP 142/78
[2018-10-11] MEDS ORDERED: MECLIZINE HCL 25 MG TAB PO PRN (23:45)
--- NOTE | 2018-10-12 00:11 | Gen Surgery History & Physical ---
History of Present Illness Chief Complaint Fall and Right pelvic pain History of Present Illness 83 y/o with H/O CVA and left sided weakness x 1.5 years. Hit head but not hard- No LOC. 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 Prov:KALEY GARCIA MD 09/13/18 Clopidogrel Bisulfate (CLOPIDOGREL) 75 Mg Tablet, 1 TAB PO QDAY for 90 Days, #90 TAB 4 Refills Prov:KALEY GARCIA MD 09/07/18 Lisinopril (LISINOPRIL) 5 Mg Tablet, 1 TAB PO QDAY for 90 Days, #90 TAB 2 Refills Prov:KALEY GARCIA MD 07/20/18 Mirtazapine (MIRTAZAPINE) 7.5 Mg Tablet, 1-2 TAB PO QHS for 90 Days, #180 TAB 1 Refill Prov:KALEY GARCIA MD 07/06/18 Atorvastatin Calcium (ATORVASTATIN CALCIUM) 20 Mg Tablet, 0.5-1 TAB PO QDAY for 90 Days, #90 TAB 4 Refills Prov:KALEY GARCIA MD 05/10/18 Meclizine Hcl (MECLIZINE HCL) 25 Mg Tablet, 25 MG PO BID PRN for DIZZINESS for 15 Days, #30 TAB Prov:KALEY GARCIA MD 05/05/18 Levothyroxine Sodium (LEVOTHYROXINE SODIUM) 50 Mcg Tablet, 1 TAB PO QDAY for 90 Days, #90 TAB 4 Refills Prov:KALEY GARCIA MD 10/12/17 Reported Medications Cholecalciferol (Vitamin D3) (VITAMIN D3) 1,000 Unit Tablet, 19643 UNIT PO QDAY, TAB 03/09/18 Acetaminophen (TYLENOL EXTRA STRENGTH) 500 Mg Tablet, 2 TAB PO Q8H PRN for pain, TAB 11/03/16 Vit A/Vit C/Vit E/Zinc/Copper (ICAPS AREDS SOFTGEL) Unknown Strength Capsule, PO, CAPSULE 11/03/16 Allergies: Coded Allergies: NSAIDS (Non-Steroidal Anti-Inflamma (Verified Allergy, Unknown, 10/11/18) Penicillins (Verified Allergy, Unknown, 10/11/18) amoxicillin (Verified Allergy, Unknown, 10/11/18) clavulanic acid (Verified Allergy, Unknown, 10/11/18) Patient History: Diabetes mellitus (DM) UNLCE FH: DC (myocardial infarction) FATHER FH: breast cancer GRANDMOTHER FH: heart disease FATHER Review of Systems Constitutional: Weight Gain (20 pounds past year); No Fever, No Weight Loss, No Chills, No Night Sweats Neurological: Weakness; No Syncope, No Confusion, No Dizziness, No Slurred Speech Eyes: Vision Change, Loss of Vision ENT: No Hearing Loss, No Sore Throat Cardiovascular: No Chest Pain, No Palpitations, No Orthostatic Hypotension Respiratory: No Shortness of Breath, No Cough, No Wheezing Gastrointestinal: No Nausea, No Vomiting, No Diarrhea, No Dysphagia, No Constipation, No Hematemesis, No Hematochezia, No Melena, No Abdominal Pain Genitourinary: No Dysuria, No Hematuria Musculoskeletal: Impaired Mobility; No Pain, No Sprain, No Strain Psychiatric: Depression, Anxiety Other Does no routine exercise Exam General Appearance: Alert, Awake, No Acute Distress, Afebrile Neuro: No Gross deficits, Other (Nl finger to nose; No pronator drift; Spine is non tender X mild midline c-spine tenderness) Eyes: PERRLA ENT: Normal, Moist Mucous Membranes, Oropharynx Clear Neck: No Masses Cardiovascular: Normal Rhythm & Peripheral Pulses, Regular Rate and Rhythm, No Edema (L>R lower ext) Respiratory: No Respiratory Distress, Clear to Auscultation Chest: Other (Mild sternal tenderness) GI: Abd Soft and Non-Tender : No CVA Tenderness Musculoskeletal: Other (+ Right anterior and posterior pelvic tenderness to palpation) Extremities: Warm, Pulses, Perfused, Edema (L>R), Other (Did not examin the hips with rotation; + R.L knee tenderness) Integumentary: Skin Intact without Lesion / Mass Psych: Alert & Oriented X3, Appropriate Mood & Affect Medical Decision Making Data Points Result Diagram: 10/11/18190110/11/181901 UA- WBC, Epithelial cells; Bact- Repeat INR 1.14 EKG / Imaging Monitor Interpretation: Normal Sinus Rhythm Imaging CT Abd/Pelvis 10/11/18: 1. Right-sided pelvic fractures. There is a comminuted and mildly displaced fracture of the right superior pubic ramus and a nondisplaced fracture of the right inferior pubic ramus. Nondisplaced fracture along the posterior right il iac crest extending into the sacroiliac joint. Faint fracture line across the superior right corner of the right sacral ala. 2. Nondisplaced fracture through the tip of the right transverse process of L5. 3. Small amount of extraperitoneal soft tissue hemorrhage in the right pelvis adjacent to the pubic rami fractures. Pre-Admit Course Medical Record Review: Yes Assessment and Plan Problems: (1) UTI (urinary tract infection) Status: Acute Assessment & Plan: Oakley placed in the ED; UA appears contaminated; Repeat UA (2) Hypokalemia Status: Resolved Assessment & Plan: Replace and Monitor (3) Weakness Status: Chronic Assessment & Plan: Left side> Right side; Ambulate with walker (4) CVA (cerebral vascular accident) Status: Chronic Assessment & Plan: CVA 1.5 years ago; Left sided weakness (5) Essential hypertension Status: Chronic Assessment & Plan: Family to bring in her new medication- unknown at this time (6) GERD (gastroesophageal reflux disease) Status: Chronic Assessment & Plan: H2 sondra; S/p esophageal dilation (7) Hyperlipidemia Status: Chronic Assessment & Plan: Statin (8) Hypothyroidism Status: Chronic Assessment & Plan: Synthroid (9) Pelvic fracture Status: Acute Assessment & Plan: Images reviewed with Dr Story at [facility]- transfer not recommended at this time; He suggested WBAT and f/u image in 7 days to assess for stability. Will consult local Ortho surgeon Dr Moss, PT, OT; CBC in AM; On Plavix but will not give DDAVP at this time Right-sided pelvic fractures. Comminuted and mildly displaced fracture of the right superior pubic ramus and a nondisplaced fracture of the right inferior pubic ramus. Nondisplaced fracture along the posterior right iliac crest extending into the sacroiliac joint. Faint fracture line across the superior right corner of the right sacral ala. (10) Fall from standing Status: Acute Assessment & Plan: Recommended: No use of stairs; Ambulate with a walker only; Consider home eval to prepare home for when she returns- ID fall risks. (11) Depression Status: Chronic Assessment & Plan: Remeron Central Venous Access Medical Necessity for Access: Hemodynamic Monitoring, IV Access, Medication Adm inistration Condition Admit to surgery floor Orthopedic consultation PT/OT eval for placement Time Spent: > 30 min (I s[pent a total of 85 miutes in the ED with the pt and her family; coordination of her pelvic fx care; review of labs and imaging; I have ordered additional studies;l I have discussed the case with EM docs Dr Melgar and Dr Acosta) Venous Thromboembolism VTE Risk Patient's VTE Risk: High Antithrombotics Is Pt On Any Antithrombotics?: Yes Problem Qualifiers (1) UTI (urinary tract infection): Indwelling urinary catheter type: unspecified Encounter type: initial encounter (2) CVA (cerebral vascular accident): CVA mechanism: unspecified Qualified Codes: I63.9 - Cerebral infarction, unspecified (3) GERD (gastroesophageal reflux disease): Esophagitis presence: with esophagitis Qualified Codes: K21.0 - Gastro- esophageal reflux disease with esophagitis (4) Hyperlipidemia: Hyperlipidemia type: unspecified Qualified Codes: E78.5 - Hyperlipidemia, unspecified (5) Hypothyroidism: Hypothyroidism type: acquired Qualified Codes: E03.9 - Hypothyroidism, unspecified (6) Pelvic fracture: Encounter type: initial encounter Pelvic bone location: multiple parts Fracture type: closed Fracture alignment: with stable disruption of pelvic ring Qualified Codes: S32.810A - Multiple fractures of pelvis with stable disruption of pelvic ring, initial encounter for closed fracture (7) Fall from standing: Encounter type: initial encounter Qualified Codes: W19.XXXA - Unspecified fall, initial encounter (8) Depression: Depression Type: unspecified Qualified Codes: F32.9 - Major depressive disorder, single episode, unspecified DORLAC,BETO MD October 12, 2018 00:11
[2018-10-12] MEDS: DOCUSATE SODIUM 100 MG CAP PO SCH ×3 (00:21→20:36)
[2018-10-12] MEDS: FAMOTIDINE 20 MG TAB PO SCH ×3 (00:21→20:36)
--- NOTE | 2018-10-12 02:32 | RADIOLOGY IMAGING REPORT ---
FACILITY: [facility] [place] PATIENT NAME: Libia Tam : 1935 MR: [id number] V: [id number] EXAM DATE: ORDERING PHYSICIAN: BETO KEENE TECHNOLOGIST: Location: [facility] [place] Patient: Libia Tam : 1935 Visit/Account:[id number] Date of Sevice: 10/11/2018 CHEST SINGLE AP 10/11/2018 22:57 hours. HISTORY: Fall. Posterior midline and sternal tenderness. COMPARISON: 10/21/2017 and studies dating to 11/11/2010. TECHNIQUE: Portable supine AP view of the chest. FINDINGS: Tubes/lines/hardware: None. Pulmonary/pleura: There is mild right hemidiaphragm elevation, unchanged. Lungs are clear. There is n o pneumothorax or pleural effusion. Cardiomediastinal: Cardiac and mediastinal silhouettes are within normal limits. Bones/soft tissues: No acute osseous abnormality. There is mild degenerative change of the spine. The visible abdomen is normal. IMPRESSION: 1. No acute cardiopulmonary process. Report Dictated By: Marely Fry at 10/12/2018 2:27 AM Report E-Signed By: Marely Fry at 10/12/2018 2:29 AM WSN:[id number]
--- NOTE | 2018-10-12 02:46 | RADIOLOGY IMAGING REPORT ---
[place] [facility] [place] Libia Tam : 1935 MR: [id number] V: [id number] EXAM DATE: ORDERING PHYSICIAN: BETO KEENE TECHNOLOGIST: Location: [facility] Patient: Libia Tam : 1935 Visit/Account:[id number] Date of Sevice: 10/11/2018 CT VERTEBRA CERVICAL (NON CON) HISTORY: Fall. Posterior midline tenderness. COMPARISON: CT angiogram neck 04/08/2017. TECHNIQUE: Axial images were obtained from the skull base through the upper thoracic spine. Coronal a nd sagittal reformatted images were obtained from the axial source data. One of the following dose optimization techniques was utilized in the performance of this exam: Autom ated exposure control; adjustment of the mA and/or kV according to the patient's size; or use of an i terative reconstruction technique. Specific details can be referenced in the facility's radiology CT exam operational policy. CONTRAST: None. FINDINGS: Musculoskeletal/vertebra: No acute osseous abnormality. There is a Schmorl node deforming the superio r endplate of T3, stable. There is moderate multilevel degenerative change of the spine, greatest at C4-5 and C6-7, unchanged. There are 2 mm anterolistheses of C4 on C5, C7 on T1, and T1 on T2, unchang ed. There is mild narrowing of the spinal canal at C3-4 secondary to a broad-based disc protrusion, u nchanged. There is partially calcified pannus formation at C1-2 which can be seen with CPPD. There is fusion of the left C2-3 facets and of the bilateral C4-5 facets. Prevertebral soft tissues are withi n normal limits. Visualized upper chest: Normal. Soft tissues: There is mild calcification at the origin of the subclavian arteries and at the carotid bifurcations. There is a circumscribed 1.5 cm right thyroid nodule in the superior lobe (coronal que ge 9 series 6) that has significantly increased in size, previously nearly inconspicuous on CT head a nd neck of March 2017. Additional findings: Visible brain and visible paranasal sinuses are normal. There is mild intracrani al vascular calcification. Leftward nasal septal deviation. Mastoids are clear. There is streak artif act from dental amalgam. IMPRESSION: 1. Degenerative changes, but no acute osseous abnormality of the cervical spine. 2. 1.5 cm right thyroid nodule has significantly increased in size. MANAGING INCIDENTAL THYROID NODULES DETECTED ON CT OR MRI *These do not apply to all patients, such as those with clinical risk factors for thyroid cancer or p ediatric patients. NO Suspicious CT or MRI findings Limited life expectancy or comorbidities * No further evaluation > 35 years old * = or > 1.5 cm: Evaluate with thyroid US Leighann Villalba et al. Managing Incidental Thyroid Nodules Detected on Imaging: White Paper of the [employer] [place] Incidental Thyroid Findings Committee. Journal of the [employer] 2017. uchnitn Report Dictated By: Marely Fry at 10/12/2018 2:30 AM Report E-Signed By: Marely Fry at 10/12/2018 2:43 AM WSN:[id number]
[2018-10-12 04:04] VITALS: BP 132/74
[2018-10-12 06:12] LABS: PLATELET COUNT, AUTOMATED 219 K/uL (150-450)
[2018-10-12] MEDS: LEVOTHYROXINE SOD 0.05 MG TAB PO SCH (06:39)
[2018-10-12 07:50] VITALS: BP 146/79
[2018-10-12] MEDS: ENOXAPARIN 40 MG/0.4ML SYR SC SCH ×2 (08:45→20:36)
[2018-10-12] MEDS: CHOLECALCIFEROL 1000 UNIT TAB PO SCH (08:45)
[2018-10-12] MEDS: ATORVASTATIN 10 MG TAB PO SCH (08:46)
[2018-10-12 11:00] VITALS: BP 143/72
[2018-10-12 12:26] VITALS: Ht 170.2 cm; Wt 85.7 kg
[2018-10-12 15:19] VITALS: BP 150/76
--- NOTE | 2018-10-12 16:24 | NUR ---
Occupational Therapy Impression Subjective evaluation completed. Orders places for bedrest and WBAT. Awaiting clarification from physician prior to functional mobility and tasks OOB. Occupational Therapy Goals 1) Pt will be Min A LB dressing. 2) Pt will be SBA grooming/hygiene seated. 3) Pt will be SBA toilet task. Patient's Goal
--- NOTE | 2018-10-12 17:43 | General Surgery Progress Note ---
Subjective Progress Notes Subjective right pelvic pain with movement Physical Exam Vital Signs Date Time Temp Pulse Resp B/P (MAP) Pulse Ox O2 Delivery O2 Flow Rate FiO2 10/12/18 15:19 98.3 95 16 150/76 (100) 90 Room Air 10/12/18 11:00 1.0 Intake and Output 10/12/18 07:00 Intake Total 400 ml Output Total 800 ml Balance -400 ml Intake Oral 400 ml Output Urine Total 800 ml General Appearance: No Acute Distress Cardiovascular: Other (reg rate) GI: Other (abd soft) Result Diagram: 10/12/1852810/12/18528 Monitor Interpretation: Normal Sinus Rhythm Assessment and Plan Problems: (1) UTI (urinary tract infection) Status: Acute Assessment & Plan: Oakley placed in the ED; UA appears contaminated; Repeat UA (2) Hypokalemia Status: Resolved Assessment & Plan: Replace and Monitor (3) Weakness Status: Chronic Assessment & Plan: Left side> Right side; Ambulate with walker (4) CVA (cerebral vascular accident) Status: Chronic Assessment & Plan: CVA 1.5 years ago; Left sided weakness (5) Essential hypertension Status: Chronic Assessment & Plan: Family to bring in her new medication- unknown at this time (6) GERD (gastroesophageal reflux disease) Status: Chronic Assessment & Plan: H2 sondra; S/p esophageal dilation (7) Hyperlipidemia Status: Chronic Assessment & Plan: Statin (8) Hypothyroidism Status: Chronic Assessment & Plan: Synthroid (9) Pelvic fracture Status: Acute Assessment & Plan: Images reviewed with Dr Story at [facility]- transfer not recommended at this time; He suggested WBAT and f/u image in 7 days to assess for stability. Will consult local Ortho surgeon Dr Moss, PT, OT; CBC in AM; On Plavix but will not give DDAVP at this time Right-sided pelvic fractures. Comminuted and mildly displaced fracture of the right superior pubic ramus and a nondisplaced fracture of the right inferior pubic ramus. Nondisplaced fracture along the posterior right iliac crest extending into the sacroiliac joint. Faint fracture line across the superior right corner of the right sacral ala. 10/12/18: Dr. Mcneal consulted - protected wt bearing on right with walker. pain control for pelvis and L5 transverse process fracture. (10) Fall from standing Status: Acute Assessment & Plan: Recommended: No use of stairs; Ambulate with a walker only; Consider home eval to prepare home for when she returns- ID fall risks. (11) Depression Status: Chronic Assessment & Plan: Remeron Central Venous Access Medical Necessity for Access: Hemodynamic Monitoring, IV Access, Medication Administration Exam Sepsis Risk: No Definite Risk Problem Qualifiers (1) UTI (urinary tract infection): Indwelling urinary catheter type: unspecified Encounter type: initial encounter (2) CVA (cerebral vascular accident): CVA mechanism: unspecified Qualified Codes: I63.9 - Cerebral infarction, unspecified (3) GERD (gastroesophageal reflux disease): Esophagitis presence: with esophagitis Qualified Codes: K21.0 - Gastro- esophageal reflux disease with esophagitis (4) Hyperlipidemia: Hyperlipidemia type: unspecified Qualified Codes: E78.5 - Hyperlipidemia, unspecified (5) Hypothyroidism: Hypothyroidism type: acquired Qualified Codes: E03.9 - Hypothyroidism, unspecified (6) Pelvic fracture: Encounter type: initial encounter Pelvic bone location: multiple parts Fracture type: closed Fracture alignment: with stable disruption of pelvic ring Qualified Codes: S32.810A - Multiple fractures of pelvis with stable disruption of pelvic ring, initial encounter for closed fracture (7) Fall from standing: Encounter type: initial encounter Qualified Codes: W19.XXXA - Unspecified fall, initial encounter (8) Depression: Depression Type: unspecified Qualified Codes: F32.9 - Major depressive disorder, single episode, unspecified PASTOR HARRIS October 12, 2018 17:43
[2018-10-12] MEDS ORDERED: CALCIUM CARBONATE 500 MG CHEW PO PRN (18:10)
[2018-10-12 19:31] VITALS: BP 154/75
[2018-10-12] MEDS: MIRTAZAPINE 15 MG TAB PO SCH (20:36)
[2018-10-13 04:12] VITALS: BP 178/99
[2018-10-13] MEDS: LEVOTHYROXINE SOD 0.05 MG TAB PO SCH (05:28)
--- NOTE | 2018-10-13 07:21 | General Surgery Progress Note ---
Subjective Progress Notes Subjective no acute events Physical Exam Vital Signs Date Time Temp Pulse Resp B/P (MAP) Pulse Ox O2 Delivery O2 Flow Rate FiO2 10/13/18 04:12 99.3 88 12 178/99 (125) 91 Nasal Cannula 1.0 Intake and Output 10/13/18 07:00 Intake Total 0 ml Output Total 675 ml Balance -675 ml Intake Oral 0 ml Output Urine Total 675 ml General Appearance: Other (sleeping) Cardiovascular: Other (reg rate) Result Diagram: 10/12/18 0510/12/18528 Monitor Interpretation: Normal Sinus Rhythm Assessment and Plan Problems: (1) UTI (urinary tract infection) Status: Acute Assessment & Plan: Oakley placed in the ED; UA appears contaminated; Repeat UA (2) Hypokalemia Status: Resolved Assessment & Plan: Replace and Monitor (3) Weakness Status: Chronic Assessment & Plan: Left side> Right side; Ambulate with walker (4) CVA (cerebral vascular accident) Status: Chronic Assessment & Plan: CVA 1.5 years ago; Left sided weakness (5) Essential hypertension Status: Chronic Assessment & Plan: Family to bring in her new medication- unknown at this time (6) GERD (gastroesophageal reflux disease) Status: Chronic Assessment & Plan: H2 sondra; S/p esophageal dilation (7) Hyperlipidemia Status: Chronic Assessment & Plan: Statin (8) Hypothyroidism Status: Chronic Assessment & Plan: Synthroid (9) Pelvic fracture Status: Acute Assessment & Plan: Images reviewed with Dr Story at [facility]- transfer not recommended at this time; He suggested WBAT and f/u image in 7 days to assess for stability. Will consult local Ortho surgeon Dr Moss, PT, OT; CBC in AM; On Plavix but will not give DDAVP at this time Right-sided pelvic fractures. Comminuted and mildly displaced fracture of the right superior pubic ramus and a nondisplaced fracture of the right inferior pubic ramus. Nondisplaced fracture along the posterior right iliac crest extending into the sacroiliac joint. Faint fracture line across the superior right corner of the right sacral ala. 10/12/18: Dr. Mcneal consulted - protected wt bearing on right with walker. pain control for pelvis and L5 transverse process fracture. 10/13/18: protected wt bearing with walker. will have physical therapy see pt and make recs. pain control. pt on lovenox. (10) Fall from standing Status: Acute Assessment & Plan: Recommended: No use of stairs; Ambulate with a walker only; Consider home eval to prepare home for when she returns- ID fall risks. (11) Depression Status: Chronic Assessment & Plan: Remeron Central Venous Access Medical Necessity for Access: Hemodynamic Monitoring, IV Access, Medication Administration Exam Sepsis Risk: No Definite Risk Problem Qualifiers (1) UTI (urinary tract infection): Indwelling urinary catheter type: unspecified Encounter type: initial encounter (2) CVA (cerebral vascular accident): CVA mechanism: unspecified Qualified Codes: I63.9 - Cerebral infarction, unspecified (3) GERD (gastroesophageal reflux disease): Esophagitis presence: with esophagitis Qualified Codes: K21.0 - Gastro-es ophageal reflux disease with esophagitis (4) Hyperlipidemia: Hyperlipidemia type: unspecified Qualified Codes: E78.5 - Hyperlipidemia, unspecified (5) Hypothyroidism: Hypothyroidism type: acquired Qualified Codes: E03.9 - Hypothyroidism, unspecified (6) Pelvic fracture: Encounter type: initial encounter Pelvic bone location: multiple parts Fract ure type: closed Fracture alignment: with stable disruption of pelvic ring Qualified Codes: S32.810A - Multiple fractures of pelvis with stable disruption of pelvic ring, initial encounter for closed fracture (7) Fall from standing: Encounter type: initial encounter Qualified Codes: W19.XXXA - Unspecified fall, initial encounter (8) Depression: Depression Type: unspecified Qualified Codes: F32.9 - Major depressive disorder, single episode, unspecified PASTOR HARRIS October 13, 2018 07:21
[2018-10-13 07:41] VITALS: BP 160/94
[2018-10-13] MEDS: DOCUSATE SODIUM 100 MG CAP PO SCH ×2 (08:58→21:17)
[2018-10-13] MEDS: ENOXAPARIN 40 MG/0.4ML SYR SC SCH ×2 (08:58→21:18)
[2018-10-13] MEDS: FAMOTIDINE 20 MG TAB PO SCH ×2 (08:58→21:17)
[2018-10-13] MEDS: CHOLECALCIFEROL 1000 UNIT TAB PO SCH (08:58)
[2018-10-13] MEDS: ATORVASTATIN 10 MG TAB PO SCH (08:58)
[2018-10-13] MEDS: traMADol 50 MG TAB PO PRN ×3 (09:45→19:37)
[2018-10-13 11:00] VITALS: BP 142/69
--- NOTE | 2018-10-13 12:32 | NUR ---
Occupational Therapy Impression Total Ax2 supine to sit and sit to supine. Max Ax1 seated EOB progressing towards CGA as tolerance improved. Min Ax2 sit<>stand with RW. Tolerating standing [id number]. Pt unable to safely tolerate weight shift for transfer at this time. Recommend terminal make up operator rehab prior to discharge home. Occupational Therapy Goals 1) Pt will be Min A LB dressing. 2) Pt will be SBA grooming/hygiene seated. 3) Pt will be SBA toilet task. Patient's Goal
[2018-10-13 15:11] VITALS: BP 144/79
[2018-10-13] MEDS: ACETAMINOPHEN 325 MG TAB PO PRN (15:13)
[2018-10-13] MEDS ORDERED: MIRT7.5T2 PO (16:17)
[2018-10-13 19:20] VITALS: BP 132/72
--- NOTE | 2018-10-13 20:50 | NUR ---
Physical Therapy Impression PT eval completed. Pt's dtr present to assist with mobility in order to understand level of care that pt will require prior to transition home. Pt required 2 person Max/Total assist for bed mobility, supine to/from sit transfers and scooting at edge of bed. Pt is fairly retropulsive and fearful of any movement. When asked if vocalizations are related to pain or fear, pt indicates that she is not hurting, but rather afraid that she will fall again. Pt requires Mod/Max assist x 2 for sit to stand into EZ lift frame and [id number] calm, verbal and tactile cues to ensure safety. Pt transferred to recliner for sponge bath while bedding change was completed. Pt then agreeable to transfer back to bed and again required same level of assistance, but with fewer vocalizations of concern noted. Pt would benefit from further intense acute rehab to address pelvis fracture with the added previous history of CVA and current retropulsive behavior. Throughout session, pt does exhibit adequate pain control, such that she would likely be able to tolerate 3 hours/day of intense rehab. Physical Therapy Goals 1. Pt to be Min/CGA for bed mobility and supine to/from sit transfers 2. Pt to be Min/CGA for sit to/from stand transfer with FWW. 3. Pt to ambulate x 50' with FWW and SBA/CGA 4. Pt to tolerate up/down 2 steps with grab bar and SBA/CGA. Patient's Goals
[2018-10-13] MEDS: MIRTAZAPINE 15 MG TAB PO SCH (21:17)
[2018-10-14 05:22] VITALS: BP 143/79
[2018-10-14] MEDS: LEVOTHYROXINE SOD 0.05 MG TAB PO SCH (05:26)
[2018-10-14 07:29] VITALS: BP 151/77
[2018-10-14] MEDS: traMADol 50 MG TAB PO PRN (08:06)
[2018-10-14] MEDS: ACETAMINOPHEN 325 MG TAB PO PRN (08:07)
--- NOTE | 2018-10-14 08:50 | General Surgery Progress Note ---
Subjective Progress Notes Subjective no pain while resting Physical Exam Vital Signs Date Time Temp Pulse Resp B/P (MAP) Pulse Ox O2 Delivery O2 Flow Rate FiO2 10/14/18 08:06 90 Nasal Cannula 1.0 10/14/18 07:29 97.8 91 20 151/77 (101) Intake and Output 10/14/18 07:00 Intake Total 600 ml Output Total 625 ml Balance -25 ml Intake Oral 600 ml Output Urine Total 625 ml General Appearance: No Acute Distress Cardiovascular: Other (reg rate) Result Diagram: 10/12/18 0529 10/12/18 05 Monitor Interpretation: Normal Sinus Rhythm Assessment and Plan Problems: (1) UTI (urinary tract infection) Status: Acute Assessment & Plan: Oakley placed in the ED; UA appears contaminated; Repeat UA (2) Hypokalemia Status: Resolved Assessment & Plan: Replace and Monitor (3) Weakness Status: Chronic Assessment & Plan: Left side> Right side; Ambulate with walker (4) CVA (cerebral vascular accident) Status: Chronic Assessment & Plan: CVA 1.5 years ago; Left sided weakness (5) Essential hypertension Status: Chronic Assessment & Plan: Family to bring in her new medication- unknown at this time (6) GERD (gastroesophageal reflux disease) Status: Chronic Assessment & Plan: H2 sondra; S/p esophageal dilation (7) Hyperlipidemia Status: Chronic Assessment & Plan: Statin (8) Hypothyroidism Status: Chronic Assessment & Plan: Synthroid (9) Pelvic fracture Status: Acute Assessment & Plan: Images reviewed with Dr Story at [facility]- transfer not recommended at this time; He suggested WBAT and f/u image in 7 days to assess for stability. Will consult local Ortho surgeon Dr Moss, PT, OT; CBC in AM; On Plavix but will not give DDAVP at this time Right-sided pelvic fractures. Comminuted and mildly displaced fracture of the right superior pubic ramus and a nondisplaced fracture of the right inferior pubic ramus. Nondisplaced fracture along the posterior right iliac crest extending into the sacroiliac joint. Faint fracture line across the superior right corner of the right sacral ala. 10/12/18: Dr. Mcneal consulted - protected wt bearing on right with walker. pain control for pelvis and L5 transverse process fracture. 10/13/18: protected wt bearing with walker. will have physical therapy see pt and make recs. pain control. pt on lovenox. 10/14/18: no acute events. working on rehab placement. likely d/c tomorrow. (10) Fall from standing Status: Acute Assessment & Plan: Recommended: No use of stairs; Ambulate with a walker only; Consider home eval to prepare home for when she returns- ID fall risks. (11) Depression Status: Chronic Assessment & Plan: Remeron Central Venous Access Medical Necessity for Access: Hemodynamic Monitoring, IV Access, Medication Administration Exam Sepsis Risk: No Definite Risk Problem Qualifiers (1) UTI (urinary tract infection): Indwelling urinary catheter type: unspecified Encounter type: initial encounter (2) CVA (cerebral vascular accident): CVA mechanism: unspecified Qualified Codes: I63.9 - Cerebral infarction, unspecified (3) GERD (gastroesophageal reflux disease): Esophagitis presence: with esophagitis Qualified Codes: K21.0 - Gastro- esophageal reflux disease with esophagitis (4) Hyperlipidemia: Hyperlipidemia type: unspecified Qualified Codes: E78.5 - Hyperlipidemia, unspecified (5) Hypothyroidism: Hypothyroidism type: acquired Qualified Codes: E03.9 - Hypothyroidism, unspecified (6) Pelvic fracture: Encounter type: initial encounter Pelvic bone location: multiple parts Fracture type: closed Fracture alignment: with stable disruption of pelvic ring Qualified Codes: S32.810A - Multiple fractures of pelvis with stable disruption of pelvic ring, initial encounter for closed fracture (7) Fall from standing: Encounter type: initial encounter Qualified Codes: W19.XXXA - Unspecified fall, initial encounter (8) Depression: Depression Type: unspecified Qualified Codes: F32.9 - Major depressive disorder, single episode, unspecified PASTOR HARRIS October 14, 2018 08:50
[2018-10-14] MEDS: ATORVASTATIN 10 MG TAB PO SCH (09:05)
[2018-10-14] MEDS: CHOLECALCIFEROL 1000 UNIT TAB PO SCH (09:06)
[2018-10-14] MEDS: DOCUSATE SODIUM 100 MG CAP PO SCH ×2 (09:06→20:36)
[2018-10-14] MEDS: ENOXAPARIN 40 MG/0.4ML SYR SC SCH (09:06)
[2018-10-14] MEDS: FAMOTIDINE 20 MG TAB PO SCH ×2 (09:06→20:35)
[2018-10-14 09:42] LABS: PLATELET COUNT, AUTOMATED 231 K/uL (150-450)
[2018-10-14 10:49] VITALS: BP 141/74
--- NOTE | 2018-10-14 12:34 | NUR ---
Physical Therapy Impression PT/OT co-treat for pt safety, with time split for billing purposes. Pt agreeable to address sitting at EOB and is able to follow [id number] verbal cues to advance LE's toward edge of bed with Min assist from PT to unweight slightly. Pt has greater difficulty scooting to edge of bed and does still require 2 person Max assist to complete this safely. Again, pt remains retropulsive, however, with the use of EZ lift, pt is better able to actively participate in leaning forward and standing with only Mod assist x 2. Physical Therapy Goals 1. Pt to be Min/CGA for bed mobility and supine to/from sit transfers 2. Pt to be Min/CGA for sit to/from stand transfer with FWW. 3. Pt to ambulate x 50' with FWW and SBA/CGA 4. Pt to tolerate up/down 2 steps with grab bar and SBA/CGA. Patient's Goals
--- NOTE | 2018-10-14 14:28 | NUR ---
Occupational Therapy Impression Co-treat with PT. Pt. requiring use of EZ lift and 2 people to perform all transfers. OT recommends pt. d/c to ARU for further rehab. Continue with POC. Occupational Therapy Goals 1) Pt will be Min A LB dressing. 2) Pt will be SBA grooming/hygiene seated. 3) Pt will be SBA toilet task. Patient's Goal
[2018-10-14 15:49] VITALS: BP 152/98
[2018-10-14 18:50] VITALS: BP 171/88
[2018-10-14] MEDS: MIRTAZAPINE 15 MG TAB PO SCH (20:36)
[2018-10-15] MEDS: LEVOTHYROXINE SOD 0.05 MG TAB PO SCH (05:10)
[2018-10-15] MEDS: traMADol 50 MG TAB PO PRN ×2 (05:10→11:39)
[2018-10-15 05:30] VITALS: BP 174/89
[2018-10-15] MEDS: ACETAMINOPHEN 325 MG TAB PO PRN ×2 (06:16→13:59)
[2018-10-15] MEDS ORDERED: LISINOPRIL 5 MG TAB PO ONE (07:15)
[2018-10-15 07:19] VITALS: BP 115/71
--- NOTE | 2018-10-15 07:20 | Hospitalist Depart ---
Discharge Summary Reason for Hosp/Final Diag: (1) UTI (urinary tract infection) Status: Acute Hospital Course & Plan: Oakley placed in the ED; UA appears contaminated; Repeat UA (2) Hypokalemia Status: Resolved Hospital Course & Plan: Replace and Monitor (3) Weakness Status: Chronic Hospital Course & Plan: Left side> Right side; Ambulate with walker (4) CVA (cerebral vascular accident) Status: Chronic Hospital Course & Plan: CVA 1.5 years ago; Left sided weakness (5) Essential hypertension Status: Chronic Hospital Course & Plan: Family to bring in her new medication- unknown at this time (6) GERD (gastroesophageal reflux disease) Status: Chronic Hospital Course & Plan: H2 sondra; S/p esophageal dilation (7) Hyperlipidemia Status: Chronic Hospital Course & Plan: Statin (8) Hypothyroidism Status: Chronic Hospital Course & Plan: Synthroid (9) Pelvic fracture Status: Acute Hospital Course & Plan: Images reviewed with Dr Story at [facility]- transfer not recommended at this time; He suggested WBAT and f/u image in 7 days to assess for stability. Will consult local Ortho surgeon Dr Moss, PT, OT; CBC in AM; On Plavix but will not give DDAVP at this time Right-sided pelvic fractures. Comminuted and mildly displaced fracture of the right superior pubic ramus and a nondisplaced fracture of the right inferior pubic ramus. Nondisplaced fracture along the posterior right iliac crest extending into the sacroiliac joint. Faint fracture line across the superior right corner of the right sacral ala. 10/12/18: Dr. Mcneal consulted - protected wt bearing on right with walker. pain control for pelvis and L5 transverse process fracture. 10/13/18: protected wt bearing with walker. will have physical therapy see pt and make recs. pain control. pt on lovenox. 10/14/18: no acute events. working on rehab placement. likely d/c tomorrow. 10/15/18: no acute events. plavix restarted yesterday. lovenox d/c'd. lisinopril restarted. d/c to rehab today. (10) Fall from standing Status: Acute Hospital Course & Plan: Recommended: No use of stairs; Ambulate with a walker only; Consider home eval to prepare home for when she returns- ID fall risks. (11) Depression Status: Chronic Hospital Course & Plan: Remeron Departure Weight (Pounds): 189 Result Diagram: 10/14/1892910/14/18929 Condition: Improved Discharge: Rehab Facility PT/OT Follow Up For: PT For Strengthening, OT For ADL's Discharge Instructions Home Meds Active Scripts Ranitidine Hcl (ZANTAC) 150 Mg Tablet, 1 TAB PO BID PRN for HEARTBURN for 90 Days, #180 TAB 4 Refills Take 1 tab po daily for heartburn, may take twice daily if needed. Prov:KALEY GARCIA MD 09/13/18 Clopidogrel Bisulfate (CLOPIDOGREL) 75 Mg Tablet, 1 TAB PO QDAY for 90 Days, #90 TAB 4 Refills Prov:KALEY GARCIA MD 09/07/18 Lisinopril (LISINOPRIL) 5 Mg Tablet, 1 TAB PO QDAY for 90 Days, #90 TAB 2 Refills Prov:KALEY GARCIA MD 07/20/18 Atorvastatin Calcium (ATORVASTATIN CALCIUM) 20 Mg Tablet, 0.5-1 TAB PO QDAY for 90 Days, #90 TAB 4 Refills Prov:KALEY GARCIA MD 05/10/18 Meclizine Hcl (MECLIZINE HCL) 25 Mg Tablet, 25 MG PO BID PRN for DIZZINESS for 15 Days, #30 TAB Prov:KALEY GARCIA MD 05/05/18 Levothyroxine Sodium (LEVOTHYROXINE SODIUM) 50 Mcg Tablet, 1 TAB PO QDAY for 90 Days, #90 TAB 4 Refills Prov:KALEY GARCIA MD 10/12/17 Reported Medications Mirtazapine (MIRTAZAPINE) 7.5 Mg Tablet, 1-3 TAB PO QHS 10/13/18 Cholecalciferol (Vitamin D3) (VITAMIN D3) 1,000 Unit Tablet, 1000 UNIT PO QDAY, TAB 03/09/18 Acetaminophen (TYLENOL EXTRA STRENGTH) 500 Mg Tablet, 2 TAB PO Q8H PRN for pain, TAB 11/03/16 Vit A/Vit C/Vit E/Zinc/Copper (ICAPS AREDS SOFTGEL) Unknown Strength Capsule, PO, CAPSULE 11/03/16 Discontinued Scripts Mirtazapine (MIRTAZAPINE) 7.5 Mg Tablet, 1-2 TAB PO QHS for 90 Days, #180 TAB 1 Refill Prov:KALEY GARCIA MD 07/06/18 Diet: Regular Activity: With Walker Special Instructions: protected wt bearing on the right with walker. f/u dr. mcneal or other ortho surgeon 2 wks f/u pcp within 2 wks Venous Thromboembolism Antithrombotics Is Pt On Any Antithrombotics?: Yes Problem Qualifiers (1) UTI (urinary tract infection): Indwelling urinary catheter type: unspecified Encounter type: initial encounter (2) CVA (cerebral vascular accident): CVA mechanism: unspecified Qualified Codes: I63.9 - Cerebral infarction, unspecified (3) GERD (gastroesophageal reflux disease): Esophagitis presence: with esophagitis Qualified Codes: K21.0 - Gastro- esophageal reflux disease with esophagitis (4) Hyperlipidemia: Hyperlipidemia type: unspecified Qualified Codes: E78.5 - Hyperlipidemia, uns pecified (5) Hypothyroidism: Hypothyroidism type: acquired Qualified Codes: E03.9 - Hypothyroidism, unspecified (6) Pelvic fracture: Encounter type: initial encounter Pelvic bone location: multiple parts Fracture type: closed Fracture alignment: with stable disruption of pelvic ring Qualified Codes: S32.810A - Multiple fractures of pelvis with stable disruption of pelvic ring, initial encounter for closed fracture (7) Fall from standing: Encounter type: initial encounter Qualified Codes: W19.XXXA - Unspecified fall, initial encounter (8) Depression: Depression Type: unspecified Qualified Codes: F32.9 - Major depressive disorder, single episode, unspecified PASTOR HARRIS October 15, 2018 07:20
[2018-10-15] MEDS: DOCUSATE SODIUM 100 MG CAP PO SCH (08:30)
[2018-10-15] MEDS: FAMOTIDINE 20 MG TAB PO SCH (08:31)
[2018-10-15] MEDS: ATORVASTATIN 10 MG TAB PO SCH (08:31)
[2018-10-15] MEDS: CHOLECALCIFEROL 1000 UNIT TAB PO SCH (08:31)
[2018-10-15] MEDS ORDERED: CLOPIDOGREL BISULFATE 75MG TAB PO SCH (09:00)
[2018-10-15] MEDS ORDERED: TROLAMINE SALIC 10% CR 90GM TB TP SCH (11:05)
--- NOTE | 2018-10-15 12:48 | NUR ---
OCCUPATIONAL THERAPY Dressing Assistance: Dressing Aid Required: Bathing Assistance: Bathing Equipment: Home Assessment: Not Completed Feeding Assistance: Set-up Feeding Specialized Equipment: N/A Toilet Use: Verbalizes Needs: Yes Understands Precautions: Yes Cooperative: Yes Family Teaching: No Occupational Therapy Comment: Pt.will d/c to ARU for further rehab.
--- NOTE | 2018-10-15 12:49 | NUR ---
PHYSICAL THERAPY INFORMATION TRANSFER SHEET BED MOBILITY: Maximum Assistance 2 person assist TRANSFERS: Moderate Assistance 2 person assist GAIT: ' with and Weightbearing Status: WBAT STAIRS: with . EXERCISES: Verbalizes Needs: Yes Understands Directions Yes Cooperative: Yes Family Teaching: No Physical Therapy Comment:
== END 2018-10-15 17:14 | disposition short-term general hospital (02) | DRG 536 ==
LOC: ER 17:48 → MED 23:02
PROVIDERS: ADMIT Surgery; ATTEND Surgery
DX: S32.511A Fracture of superior rim of right pubis, initial encounter for closed fracture (principal); S32.10XA Unspecified fracture of sacrum, initial encounter for closed fracture; N39.0 Urinary tract infection, site not specified; I69.954 Hemiplegia and hemiparesis following unspecified cerebrovascular disease affecting left non-dominant side; E87.6 Hypokalemia; S32.591A Other specified fracture of right pubis, initial encounter for closed fracture; S32.301A Unspecified fracture of right ilium, initial encounter for closed fracture; I10 Essential (primary) hypertension; K21.9 Gastro-esophageal reflux disease without esophagitis; E78.5 Hyperlipidemia, unspecified; E03.9 Hypothyroidism, unspecified; F32.9 Major depressive disorder, single episode, unspecified; K44.9 Diaphragmatic hernia without obstruction or gangrene; Z23 Encounter for immunization; K22.2 Esophageal obstruction; W18.30XA Fall on same level, unspecified, initial encounter; Y92.000 Kitchen of unspecified non-institutional (private) residence as the place of occurrence of the external cause; Z88.0 Allergy status to penicillin; Z88.8 Allergy status to other drugs, medicaments and biological substances; Z79.01 Long term (current) use of anticoagulants; Z96.653 Presence of artificial knee joint, bilateral
CPT/HCPCS: 36415; 70450; 71045; 72125; 74177; 81001; 82040; 82247; 82310; 82374; 82435; 82565; 82947; 83735; 84075; 84132; 84155; 84295; 84450; 84460; 84520; 85025; 85610; 85730; 86850; 86900; 86901; 87077; 87088; 87186; 90471; 90715; 93005; 96374; 97161; 97165; 99285; C1758; J1650; J2270; Q9967